=== PATIENT | female | born 1970 | race Two or more races ===

== ENCOUNTER 2016-12-22 13:08 | Emergency (ER) | payer OTHER, MEDICAID ==
--- NOTE | 2016-12-22 14:03 | ER Document Report ---
ED General - General Chief Complaint: Abnormal Lab Results Stated Complaint: ABNORMAL LABS RESULTS Time Seen by Provider: 12/22/16 13:55 Notes: 46-year-old female presents to the emergency department for right upper quadrant abdominal pain and abnormal lab results. Patient was sent over by Dr. Montelongo for lab results of: ACT-1400, ALT-1600, and ALK-203. Patient states her right upper quadrant pain radiates into her back. Patient had a negative ultrasound completed along with x-rays on Wednesday patient also states that she is smells a bad odor all the time. 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 Patient also takes 800 mg of ibuprofen 3 times a day. Patient also complains of some nausea, vomiting, and tiredness. Patient has not had a bowel movement in 4-5 days. Patient has had constipation in the past because of her morphine but has taken a laxative this morning with no relief. Patient also states her urine is very orange in color. Patient last ate about 1 hour prior to arrival. TRAVEL OUTSIDE OF THE [place] IN LAST 30 DAYS: No - Related Data Allergies/Adverse Reactions: doxycycline [Doxycycline] Allergy (Severe, Verified 12/22/16 13:56) Tachycardia latex [Latex] Allergy (Severe, Verified 12/22/16 13:56) rash Past Medical History - Social History Family History: Reviewed & Not Pertinent Patient has suicidal ideation: No Patient has homicidal ideation: No - Past Medical History Cardiac Medical History: Denies: Hx Coronary Artery Disease, Hx Heart Attack, Hx Hypertension Pulmonary Medical History: Denies: Hx Asthma, Hx Bronchitis, Hx COPD, Hx Pneumonia Neurological Medical History: Denies: Hx Cerebrovascular Accident, Hx Seizures Renal/ Medical History: Reports: Hx Ovarian Cysts. Denies: Hx Kidney Stones, Hx Peritoneal Dialysis GI Medical History: Reports: Hx Irritable Bowel - constipation Musculoskeltal Medical History: Denies Hx Arthritis Psychiatric Medical History: Denies: Hx Depression Past Surgical History: Reports: Hx Section - x4, Hx Hysterectomy - 06/06, Hx Orthopedic Surgery - bone fusions in both feet.; back surgeries - Immunizations Hx Diphtheria, Pertussis, Tetanus Vaccination: No Physical Exam - Vital signs Vitals: Temp Pulse Resp BP Pulse Ox 98.1 F 63 16 90/40 L 99 12/22/16 13:23 12/22/16 13:23 12/22/16 13:23 12/22/16 13:23 12/22/16 13:23 - Notes Notes: GENERAL: Alert, interacts well. No acute distress. LUNGS: Clear to auscultation bilaterally, no wheezes, rales, or rhonchi. No respiratory distress. HEART: Regular rate and rhythm. No murmurs, gallops, or rubs. ABDOMEN: Soft, lower abdominal tenderness with palpation. NEUROLOGICAL: Alert and oriented x3. Normal speech. Course - Vital Signs Vital signs: Temp Pulse Resp BP Pulse Ox 98.1 F 63 16 90/40 L 99 12/22/16 13:23 12/22/16 13:23 12/22/16 13:23 12/22/16 13:23 12/22/16 13:23 Scribe Documentation - Scribe Written by Scribe:: Orlando George, 12/22/2016 2:30 acting as scribe for :: Radha
--- NOTE | 2016-12-22 14:23 | ER Document Report ---
ED Medical Screen (RME) - General TRAVEL OUTSIDE OF THE [place] IN LAST 30 DAYS: No <DAYSI FARFAN - Last Filed: 12/22/16 14:25> <PREM ALEX - Last Filed: 12/22/16 16:49> - General Chief Complaint: Abnormal Lab Results Stated Complaint: ABNORMAL LABS RESULTS Time Seen by Provider: 12/22/16 13:55 Notes: 46-year-old female presents to the emergency department for right upper quadrant abdominal pain and abnormal lab results. Patient was sent over by Dr. Montelongo for lab results of: ACT-1400, ALT-1600, and ALK-203. Patient states her right upper quadrant pain radiates into her back. Patient had a negative ultrasound completed along with x-rays on Wednesday patient also states that she is smells a bad odor all the time. 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 Patient also takes 800 mg of ibuprofen 3 times a day. Patient also complains of some nausea, vomiting, and tiredness. Patient has not had a bowel movement in 4-5 days. Patient has had constipation in the past because of her morphine but has taken a laxative this morning with no relief. Patient also states her urine is very orange in color. Patient last ate about 1 hour prior to arrival. (DAYSI FARFAN) - Related Data Allergies/Adverse Reactions: doxycycline [Doxycycline] Allergy (Severe, Verified 12/22/16 13:56) Tachycardia latex [Latex] Allergy (Severe, Verified 12/22/16 13:56) rash Past Medical History - Past Medical History Cardiac Medical History: Denies: Hx Coronary Artery Disease, Hx Heart Attack, Hx Hypertension Pulmonary Medical History: Denies: Hx Asthma, Hx Bronchitis, Hx COPD, Hx Pneumonia Neurological Medical History: Denies: Hx Cerebrovascular Accident, Hx Seizures Renal/ Medical History: Reports: Hx Ovarian Cysts. Denies: Hx Kidney Stones, Hx Peritoneal Dialysis GI Medical History: Reports: Hx Irritable Bowel - constipation Musculoskeltal Medical History: Denies Hx Arthritis Psychiatric Medical History: Denies: Hx Depression Past Surgical History: Reports: Hx Section - x4, Hx Hysterectomy - 06/06, Hx Orthopedic Surgery - bone fusions in both feet.; back surgeries - Immunizations Hx Diphtheria, Pertussis, Tetanus Vaccination: No <DAYSI FARFAN - Last Filed: 12/22/16 14:25> Physical Exam <DAYSI FARFAN - Last Filed: 12/22/16 14:25> <PREM ALEX - Last Filed: 12/22/16 16:49> - Vital signs Vitals: Temp Pulse Resp BP Pulse Ox 98.1 F 63 16 90/40 L 99 12/22/16 13:23 12/22/16 13:23 12/22/16 13:23 12/22/16 13:23 12/22/16 13:23 - Notes Notes: VITAL: Blood pressure rechecked during exam: 111/65 GENERAL: Alert, interacts well. No acute distress. LUNGS: Clear to auscultation bilaterally, no wheezes, rales, or rhonchi. No respiratory distress. HEART: Regular rate and rhythm. No murmurs, gallops, or rubs. ABDOMEN: Soft, lower abdominal tenderness with palpation. NEUROLOGICAL: Alert and oriented x3. Normal speech. (DAYSI FARFAN) Course - Laboratory Result Diagrams: 12/22/16 15:45 12/22/16 15:45 <PREM ALEX - Last Filed: 12/22/16 16:49> - Vital Signs Vital signs: Temp Pulse Resp BP Pulse Ox 98.1 F 63 16 90/40 L 99 12/22/16 13:23 12/22/16 13:23 12/22/16 13:23 12/22/16 13:23 12/22/16 13:23 - Laboratory Laboratory results interpreted by me: 12/22/16 12/22/16 12/22/16 14:56 15:45 16:00 RDW 14.1 H Ammonia 8.8 L Urine Glucose (UA) >=500 H Urine Blood SMALL H Urine Urobilinogen 2.0 H Scribe Documentation - Scribe Written by Scribe:: Orlando George, 12/22/16 14:30 acting as scribe for :: Radha <DAYSI FARFAN - Last Filed: 12/22/16 14:25>
[2016-12-22 15:30] LABS: APPEARANCE,URINE SLIGHTLY-CLOUDY; BILIRUBIN,URINE NEGATIVE (NEGATIVE); GLUCOSE, URINE >=500 mg/dL (NEGATIVE); KETONES,URINE NEGATIVE (NEGATIVE); LEUKOCYTE ESTERASE,URINE NEGATIVE (NEGATIVE); NITRITE,URINE NEGATIVE (NEGATIVE); PROTEIN,URINE NEGATIVE (NEGATIVE); URINE SPECIFIC GRAVITY 1.022
[2016-12-22 15:40] LABS: URINE BARBITURATES SCREEN NEGATIVE; URINE METHADONE SCREEN NEGATIVE; URINE OPIATES LOW UNCONFIRMED POSITIVE; URINE PHENCYCLIDINE SCREEN NEGATIVE
[2016-12-22 16:00] LABS: ABSOLUTE BASOPHILS # (AUTO) 0.1 10^3/uL (0.0-0.2); ABSOLUTE EOSINOPHILS # (AUTO) 0.2 10^3/uL (0.0-0.6); ABSOLUTE LYMPHOCYTES (AUTO) 1.3 10^3/uL (0.5-4.7); ABSOLUTE MONOCYTES (AUTO) 0.5 10^3/uL (0.1-1.4); ABSOLUTE NEUT (AUTO) 2.7 10^3/uL (1.7-8.2); BASOPHILS % (AUTO) 1.2 % (0-2); EOSINOPHILS % (AUTO) 4.4 % (0-6); HEMATOCRIT 41.7 % (36.0-47.0); HEMOGLOBIN 13.9 g/dL (12.0-15.5); LYMPHOCYTES % (AUTO) 28.2 % (13-45); MEAN CORPUSCULAR HEMOGLOBIN 29.6 pg (27.0-33.4); MEAN CORPUSCULAR HGB CONC 33.4 g/dL (32.0-36.0); MEAN CORPUSCULAR VOLUME 89 fl (80-97); MONOCYTES % (AUTO) 10.1 % (3-13); RED CELL DISTRIBUTION WIDTH 14.1 % (11.5-14.0); SEGMENTED NEUTROPHILS % (AUTO) 56.1 % (42-78); WHITE BLOOD COUNT 4.8 10^3/uL (4.0-10.5)
[2016-12-22 16:32] LABS: ALBUMIN 3.6 g/dL (3.5-5.0); ALKALINE PHOSPHATASE 211 U/L (38-126); ANION GAP 8 (5-19); BILIRUBIN,TOTAL 2.8 mg/dL (0.2-1.3); BLOOD UREA NITROGEN 13 mg/dL (7-20); CARBON DIOXIDE 32 mmol/L (22-30); CHLORIDE 102 mmol/L (98-107); CREATININE RESULT 0.54 mg/dL (0.52-1.25); GLUCOSE 134 mg/dL (75-110); LIPASE 73.2 U/L (23-300); SODIUM 142.2 mmol/L (137-145)
[2016-12-22 16:58] LABS: ALANINE AMINOTRANSFERASE 1471 U/L (9-52); ASPARTATE AMINO TRANSFERASE 774 U/L (14-36)
--- NOTE | 2016-12-22 16:59 | RADIOLOGY REPORT (SQ) ---
EXAM DESCRIPTION: U/S ABDOMEN LIMITED W/O DOP COMPLETED DATE/TIME: 12/22/2016 4:47 pm REASON FOR STUDY: elevated LFTs COMPARISON: None. TECHNIQUE: Dynamic and static grayscale images acquired of the abdomen and recorded on PACS. Additio nal selected color Doppler and spectral images recorded. LIMITATIONS: None. FINDINGS: PANCREAS: No masses. Visualized pancreatic duct normal caliber. LIVER: No masses. Echotexture normal. LIVER VASCULATURE: Normal blood flow is identified in the portal vein. GALLBLADDER: No stones. Normal wall thickness. No pericholecystic fluid. ULTRASOUND-DETECTED RUBIO'S SIGN: Negative. INTRAHEPATIC DUCTS AND COMMON DUCT: CBD and intrahepatic ducts normal caliber. No filling defects. INFERIOR VENA CAVA: Normal flow. AORTA: No aneurysm. RIGHT KIDNEY: Normal size. Normal echogenicity. No solid or suspicious masses. No hydronephrosis. No calcifications. PERITONEAL AND RIGHT PLEURAL SPACE: No ascites or effusions. OTHER: No other significant findings. IMPRESSION: No significant intra-abdominal abnormalities were identified. Findings as noted above. TECHNICAL DOCUMENTATION: JOB ID: [id number]- All Rights Reserved
--- NOTE | 2016-12-22 17:38 | ER Document Report ---
ED GI/ - General Chief Complaint: Abnormal Lab Results Stated Complaint: ABNORMAL LABS RESULTS Time Seen by Provider: 12/22/16 13:55 Notes: Patient is a 46-year-old female who presents emergency department complaining of right upper quadrant pain 2 months with associated nausea for 1 week and decreased appetite. Patient states that she has been evaluated by her primary care physician Dr. Arvizu for this problem 2 times. Patient states that she has had an abdominal ultrasound which showed inflammation around her gallbladder but otherwise denies any other findings. States she was referred over to the emergency department today due to elevated liver enzymes on routine blood work that was drawn earlier this week. Otherwise she denies any heartburn, vomiting , diarrhea constipation. Patient states that she is from the [facility] so she was limited in her ability for access to healthcare going up. She did not receive her polio vaccine as a child. She did have polio as a child. Since she has moved to the [facility] she states that her vaccines are up-to-date Morphine 15 mg Motrin 800 Gabapentin 300mg PCP: laurence TRAVEL OUTSIDE OF THE [place] IN LAST 30 DAYS: No - Related Data Allergies/Adverse Reactions: doxycycline [Doxycycline] Allergy (Severe, Verified 12/22/16 13:56) Tachycardia latex [Latex] Allergy (Severe, Verified 12/22/16 13:56) rash Past Medical History - Social History Smoking Status: Never Smoker Family History: Reviewed & Not Pertinent Patient has suicidal ideation: No Patient has homicidal ideation: No - Past Medical History Cardiac Medical History: Denies: Hx Coronary Artery Disease, Hx Heart Attack, Hx Hypertension Pulmonary Medical History: Denies: Hx Asthma, Hx Bronchitis, Hx COPD, Hx Pneumonia Neurological Medical History: Denies: Hx Cerebrovascular Accident, Hx Seizures Renal/ Medical History: Reports: Hx Ovarian Cysts. Denies: Hx Kidney Stones, Hx Peritoneal Dialysis GI Medical History: Reports: Hx Irritable Bowel - constipation Musculoskeltal Medical History: Denies Hx Arthritis Psychiatric Medical History: Denies: Hx Depression Past Surgical History: Reports: Hx Section - x4, Hx Hysterectomy - 06/06, Hx Orthopedic Surgery - bone fusions in both feet.; back surgeries - Immunizations Hx Diphtheria, Pertussis, Tetanus Vaccination: No Physical Exam - Vital signs Vitals: Temp Pulse Resp BP Pulse Ox 98.1 F 63 16 90/40 L 99 12/22/16 13:23 12/22/16 13:23 12/22/16 13:23 12/22/16 13:23 12/22/16 13:23 - Notes Notes: PHYSICAL EXAM GENERAL: Alert, interacts well. HEAD: Normocephalic, atraumatic. EYES: Pupils equal, round, and reactive to light. Extraocular movements intact. ENT: Oral mucosa moist, tongue midline. NECK: Full range of motion. Supple. Trachea midline. LUNGS: Clear to auscultation bilaterally, no wheezes, rales, or rhonchi. No respiratory distress. HEART: Regular rate and rhythm. No murmurs, gallops, or rubs. ABDOMEN: Soft, nondistended, mild tenderness with mcburneys point assessment but no more then with general palpation of her abdomen. No guarding, rebound, or rigidity.. Bowel sounds present in all 4 quadrants. EXTREMITIES: Moves all 4 extremities spontaneously. No edema, radial and dorsalis pedis pulses 2/4 bilaterally. No cyanosis. NEUROLOGICAL: Alert and oriented x4. Normal speech. PSYCH: Normal affect, normal mood. SKIN: Warm, dry, normal turgor. No rashes or lesions noted. Course - Re-evaluation Re-evalutation: 12/22/16 18:31 38-year-old female who is hemodynamic stable, no acute distress and afebrile. Evidence of elevated AST, ALT and alk phos. Normal abdominal ultrasound. Will send hepatitis panel and patient can follow-up with gastroenterology. - Vital Signs Vital signs: Temp Pulse Resp BP Pulse Ox 98.1 F 61 17 103/66 97 12/22/16 13:23 12/22/16 18:19 12/22/16 18:19 12/22/16 18:19 12/22/16 18:19 - Laboratory Result Diagrams: 12/22/16 15:45 12/22/16 16:00 Laboratory results interpreted by me: 12/22/16 12/22/16 12/22/16 14:56 15:45 16:00 RDW 14.1 H Carbon Dioxide Glucose Total Bilirubin Direct Bilirubin AST ALT Alkaline Phosphatase Ammonia 8.8 L Urine Glucose (UA) >=500 H Urine Blood SMALL H Urine Urobilinogen 2.0 H Acetaminophen 12/22/16 16:00 RDW Carbon Dioxide 32 H Glucose 134 H Total Bilirubin 2.8 H Direct Bilirubin 2.0 H AST 774 H ALT 1471 H Alkaline Phosphatase 211 H Ammonia Urine Glucose (UA) Urine Blood Urine Urobilinogen Acetaminophen < 10 L - Diagnostic Test Radiology reviewed: Reports reviewed Discharge - Discharge Clinical Impression: Elevated liver function tests Condition: Good Disposition: HOME, SELF-CARE Instructions: Liver Function Abnormality ([facility]) Additional Instructions: Follow-up with your primary care physician for your results from today. Please follow-up with his compliance project manager regarding your visit today. Prescriptions: Ondansetron [Zofran Odt 4 mg Tablet] 1 - 2 tab PO Q4H PRN #15 tab.rapdis PRN Reason: For Nausea/Vomiting Referrals: ELVIS BRAY MD [Primary Care Provider] - Follow up as needed LORNA MCLEAN MD [ACTIVE STAFF] - Follow up in 1 week
[2016-12-22 18:22] VITALS: BP 103/66
== END 2016-12-22 18:19 | disposition home or self-care (01) ==
LOC: ER 13:08
DX: R74.8 Abnormal levels of other serum enzymes (principal); R74.0 Nonspecific elevation of levels of transaminase and lactic acid dehydrogenase [LDH]; R10.11 Right upper quadrant pain; R11.0 Nausea; R63.0 Anorexia; Z86.12 Personal history of poliomyelitis; Z88.0 Allergy status to penicillin; Z91.040 Latex allergy status; Z87.42 Personal history of other diseases of the female genital tract; Z87.19 Personal history of other diseases of the digestive system; Z90.710 Acquired absence of both cervix and uterus
CPT/HCPCS: 36415; 76705; 80053; 80074; 80307; 81001; 82140; 83690; 85025; 99284

== ENCOUNTER → 2017-06-15 | Outpatient (CLI) | payer OTHER, MEDICAID ==
--- NOTE | 2017-06-15 15:23 | WOMENS IMAGING REPORT ---
EXAM DESCRIPTION: BILAT SCREENING MAMMO W/CAD COMPLETED DATE/TIME: 06/15/2017 11:16 am REASON FOR STUDY: ROUTINE SCREENING; Z12.31 Z12.31 ENCNTR SCREEN MAMMOGRAM FOR MALIGNANT NEOPLASM O F SHIRIN COMPARISON: None. TECHNIQUE: Standard craniocaudal and mediolateral oblique views of each breast recorded using [employer] acquisition. LIMITATIONS: None. FINDINGS: No masses, calcifications or architectural distortion. No areas of suspicion. Read with the assistance of CAD. [facility] - R2 Cenova Version 1.3 .[facility] - R2 Cenova Version 1.3 .[facility] - R2 Cenova Version 2.4 .[facility] [place] R[place] Cenova Version 2.4 .[facility] - R2 Water Filterer Version 9.2 IMPRESSION: NORMAL MAMMOGRAM. BIRADS 1. BREAST DENSITY: b. There are scattered areas of fibroglandular density. BIRAD: 1 NEGATIVE RECOMMENDATION: ROUTINE SCREENING COMMENT: The patient has been notified of the results by letter per SA requirements. Additional no tification policies are in place for contacting patient with suspicious or incomplete findings. Quality ID #[id number]: The [employer] recommends an annual screening mammogram for women aged 40 years or over. This facility utilizes a reminder system to ensure that all patients receive reminder letters, and/or direct phone calls for appointments. This includes reminders for routine scr eening mammograms, diagnostic mammograms, or other Breast Imaging Interventions when appropriate. Th is patient will be placed in the appropriate reminder system. The [employer] (A[employer]) has developed recommendations for screening MRI of the breast s in certain patient populations, to be used in conjunction with mammography. Breast MRI surveillanc e may be appropriate for women with more than 20% lifetime risk of developing breast cancer as deter mined by genetic testing, significant family history of the disease, or history of mantle radiation f or Hodgkins Disease. ACR Practice Guidelines 2008. TECHNICAL DOCUMENTATION: FINDING NUMBER: (1) ASSESSMENT: (1) JOB ID: [id number] [employer]- All Rights Reserved
== END ==
LOC: WI 10:56
PROVIDERS: ATTEND Internal Medicine
DX: Z12.31 Encounter for screening mammogram for malignant neoplasm of breast (principal)
CPT/HCPCS: 77067; G0202

== ENCOUNTER 2017-07-03 13:21 | Emergency (ER) | payer OTHER, MEDICAID ==
[2017-07-03] MEDS ORDERED: ASPIRIN 325 MG TABLET PO ONE (13:57)
--- NOTE | 2017-07-03 14:00 | ER Document Report ---
ED Medical Screen (RME) - General Chief Complaint: Fall Injury Stated Complaint: FALL HEAD INJURY CHEST PAIN Time Seen by Provider: 07/03/17 13:57 Mode of Arrival: Wheelchair Information source: Patient TRAVEL OUTSIDE OF THE [place] 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 She denies neck pain. Soon after, she developed "tightness" in her chest. She has not taken ASA today - Related Data Allergies/Adverse Reactions: doxycycline [Doxycycline] Allergy (Severe, Verified 07/03/17 13:28) Tachycardia latex [Latex] Allergy (Severe, Verified 07/03/17 13:28) rash Past Medical History - Social History Chew tobacco use (# tins/day): No Frequency of alcohol use: None Drug Abuse: None - Past Medical History Cardiac Medical History: Denies: Hx Coronary Artery Disease, Hx Heart Attack, Hx Hypertension Pulmonary Medical History: Denies: Hx Asthma, Hx Bronchitis, Hx COPD, Hx Pneumonia Neurological Medical History: Denies: Hx Cerebrovascular Accident, Hx Seizures Renal/ Medical History: Reports: Hx Ovarian Cysts. Denies: Hx Kidney Stones, Hx Peritoneal Dialysis GI Medical History: Reports: Hx Irritable Bowel - constipation Musculoskeltal Medical History: Denies Hx Arthritis Psychiatric Medical History: Denies: Hx Depression Past Surgical History: Reports: Hx Section - x4, Hx Hysterectomy - 06/06, Hx Orthopedic Surgery - bone fusions in both feet.; back surgeries - Immunizations Hx Diphtheria, Pertussis, Tetanus Vaccination: No Physical Exam - Vital signs Vitals: Temp Pulse Resp BP Pulse Ox 100.2 F 98 18 156/97 H 100 07/03/17 13:29 07/03/17 13:29 07/03/17 13:29 07/03/17 13:29 07/03/17 13:29 Course - Vital Signs Vital signs: Temp Pulse Resp BP Pulse Ox 100.2 F 98 18 156/97 H 100 07/03/17 13:29 07/03/17 13:29 07/03/17 13:29 07/03/17 13:29 07/03/17 13:29
[2017-07-03 14:18] LABS: ABSOLUTE BASOPHILS # (AUTO) 0.1 10^3/uL (0.0-0.2); ABSOLUTE LYMPHOCYTES (AUTO) 2.3 10^3/uL (0.5-4.7); ABSOLUTE MONOCYTES (AUTO) 0.5 10^3/uL (0.1-1.4); ABSOLUTE NEUT (AUTO) 5.6 10^3/uL (1.7-8.2); BASOPHILS % (AUTO) 1.3 % (0-2); EOSINOPHILS % (AUTO) 0.2 % (0-6); HEMATOCRIT 41.5 % (36.0-47.0); HEMOGLOBIN 14.5 g/dL (12.0-15.5); MEAN CORPUSCULAR HEMOGLOBIN 29.9 pg (27.0-33.4); MEAN CORPUSCULAR VOLUME 85 fl (80-97); MONOCYTES % (AUTO) 6.1 % (3-13); RED BLOOD COUNT 4.86 10^6/uL (3.72-5.28); RED CELL DISTRIBUTION WIDTH 12.7 % (11.5-14.0); SEGMENTED NEUTROPHILS % (AUTO) 65.4 % (42-78); WHITE BLOOD COUNT 8.6 10^3/uL (4.0-10.5)
--- NOTE | 2017-07-03 14:29 | RADIOLOGY REPORT (SQ) ---
EXAM DESCRIPTION: CT HEAD WITHOUT COMPLETED DATE/TIME: 07/03/2017 2:20 pm REASON FOR STUDY: fall COMPARISON: None. TECHNIQUE: Axial images acquired through the brain without intravenous contrast. Images reviewed wi th bone, brain and subdural windows. Images stored on PACS. All CT scanners at this facility use dose modulation, iterative reconstruction, and/or weight based d osing when appropriate to reduce radiation dose to as low as reasonably achievable (ALARA). [facility]: Dose Right [facility]: CareDose [facility]: Dose Right [facility]: Teradose 4D [facility]: Smart Zizerones RADIATION DOSE: 64 mGy. LIMITATIONS: Motion artifact throughout the study FINDINGS: Motion artifact throughout the study. No gross acute large territory ischemic change. No gross intracranial hemorrhage, mass effect, or mi dline shift. There is midline frontal scalp swelling without underlying skull fracture. IMPRESSION: Motion artifact. Midline frontal scalp swelling without underlying skull fracture. No gross acute changes EVIDENCE OF ACUTE STROKE: NO. COMMENT: Quality ID # [id number]: Final reports with documentation of one or more dose reduction techniques (e.g., Automated exposure control, adjustment of the mA and/or kV according to patient size, use of iterative reconstruction technique) TECHNICAL DOCUMENTATION: JOB ID: [id number] [employer]- All Rights Reserved
--- NOTE | 2017-07-03 14:32 | RADIOLOGY REPORT (SQ) ---
EXAM DESCRIPTION: CHEST PA/LAT COMPLETED DATE/TIME: 07/03/2017 2:25 pm REASON FOR STUDY: fall COMPARISON: None. EXAM PARAMETERS: NUMBER OF VIEWS: two views TECHNIQUE: Digital Frontal and Lateral radiographic views of the chest acquired. RADIATION DOSE: NA LIMITATIONS: none FINDINGS: LUNGS AND PLEURA: No opacities, masses or pneumothorax. No pleural effusion. MEDIASTINUM AND HILAR STRUCTURES: No masses or contour abnormalities. HEART AND VASCULAR STRUCTURES: Heart normal size. No evidence for failure. BONES: Lower cervical fusion with hardware HARDWARE: None in the chest. OTHER: No other significant finding. IMPRESSION: NO SIGNIFICANT RADIOGRAPHIC FINDING IN THE CHEST. TECHNICAL DOCUMENTATION: JOB ID: [id number] [employer]- All Rights Reserved
[2017-07-03 14:39] LABS: ALANINE AMINOTRANSFERASE 25 U/L (9-52); ALBUMIN 4.1 g/dL (3.5-5.0); ALKALINE PHOSPHATASE 153 U/L (38-126); ANION GAP 14 (5-19); ASPARTATE AMINO TRANSFERASE 31 U/L (14-36); BILIRUBIN,DIRECT 0.6 mg/dL (0.0-0.4); BLOOD UREA NITROGEN 5 mg/dL (7-20); CALCIUM 9.8 mg/dL (8.4-10.2); CARBON DIOXIDE 26 mmol/L (22-30); CHLORIDE 107 mmol/L (98-107); CREATINE KINASE 114 U/L (30-135); CREATININE RESULT 0.46 mg/dL (0.52-1.25); GLUCOSE 132 mg/dL (75-110); POTASSIUM 3.3 mmol/L (3.6-5.0); SODIUM 147.3 mmol/L (137-145); TOTAL PROTEIN 8.5 g/dL (6.3-8.2)
[2017-07-03 14:51] LABS: CREATINE KINASE MB 1.03 ng/mL (<4.55)
[2017-07-03 14:54] LABS: TROPONIN I < 0.012 ng/mL
--- NOTE | 2017-07-03 15:09 | ER Document Report ---
ED Fall - General Chief Complaint: Fall Injury Stated Complaint: FALL HEAD INJURY CHEST PAIN Time Seen by Provider: 07/03/17 13:57 Mode of Arrival: Wheelchair Information source: Patient Notes: Patient has a history of polio leaving her with very weak legs that require her to wear leg braces in order to walk. She was going up a hill on gravel surface and slipped and fell forward hitting her face on the concrete surface. She sustained some abrasions to the forehead and upper lip region. She was able to stand back up with assistance and then was able to walk back to their vehicle without difficulty. Patient was never unconscious. Has not had any neurologic deficits. Patient denies any neck pain. Denies any chest pain or difficulty breathing. No abdominal pains. Did hit her right knee slightly, but has been able to bear weight on it. Patient has had neck surgery on 3 of the vertebrae there. Suffers from anxiety and often gets tremor or shakes. She takes hydroxyzine for this condition. TRAVEL OUTSIDE OF THE [place] IN LAST 30 DAYS: No - Related data Allergies/Adverse Reactions: doxycycline [Doxycycline] Allergy (Severe, Verified 07/03/17 13:28) Tachycardia latex [Latex] Allergy (Severe, Verified 07/03/17 13:28) rash Home Medications: Current Home Medications Ibuprofen [Motrin 800 mg Tablet] 800 mg PO Q8 PRN 07/03/17 [History] Morphine Sulfate [Morphine Sulfate] 1 tab PO QHS 07/03/17 [History] Tizanidine HCl [Tizanidine HCl] 1 tab PO TID PRN 07/03/17 [History] Past Medical History - General Information source: Patient - Social History Smoking Status: Never Smoker Chew tobacco use (# tins/day): No Frequency of alcohol use: None Drug Abuse: None Family History: Reviewed & Not Pertinent Patient has suicidal ideation: No Patient has homicidal ideation: No Renal/ Medical History: Reports: Hx Ovarian Cysts GI Medical History: Reports: Hx Irritable Bowel - constipation Past Surgical History: Reports: Hx Section - x4, Hx Hysterectomy - 06/06, Hx Orthopedic Surgery - bone fusions in both feet.; back surgeries - Immunizations Hx Diphtheria, Pertussis, Tetanus Vaccination: No Review of Systems - Review of Systems Notes: REVIEW OF SYSTEMS: CONSTITUTIONAL : Denies fever. CARDIOVASCULAR: Denies chest pain. RESPIRATORY: Denies cough, chest congestion, or shortness of breath. GASTROINTESTINAL: Denies abdominal pain or nausea, vomiting, or diarrhea. GENITOURINARY: Denies difficulty or painful urinating, urinary frequency, blood in urine. MUSCULOSKELETAL: Denies back or neck pain. Denies joint pain or swelling. SKIN: Denies rash or skin lesions. NEUROLOGICAL: Denies LOC or altered mental status. Denies headache. Denies sensory loss and no new motor deficits except those from polio that she has had since she was a child. ALL OTHER SYSTEMS REVIEWED AND NEGATIVE. Physical Exam - Vital signs Vitals: Temp Pulse Resp BP Pulse Ox 100.2 F 98 18 156/97 H 100 07/03/17 13:29 07/03/17 13:29 07/03/17 13:29 07/03/17 13:29 07/03/17 13:29 Interpretation: Normal, Febrile - Low-grade and not present on repeat - Notes Notes: PHYSICAL EXAMINATION: GENERAL: Well-appearing, in no acute distress. HEAD: Patient has some superficial abrasions in the right frontal forehead region. She also has a deeper abrasion in the midportion above the upper lip, just below the nose that is round and about 2 cm diameter. There are a few other scrapes or cuts and nothing requiring sutures. Teeth are stable. EYES: Pupils equal round and reactive to light, extraocular movements intact. ENT: oropharynx clear without exudates. Moist mucous membranes. NECK: Normal range of motion, supple. LUNGS: Breath sounds clear and equal bilaterally. Chest wall not tender. No abrasions. Breath sounds are normal. HEART: Regular rate and rhythm without murmurs. ABDOMEN: Soft, nontender. No guarding or rebound. BACK: No tenderness throughout entire back. EXTREMITIES: Normal range of motion without pain. Both lower extremities are very small stature, as is the patient overall. She has a very tiny abrasion of the lateral aspect of the right knee, but full passive range of motion of that knee without any significant pain. NEUROLOGICAL: Normal speech. Normal sensory, motor, and reflex exams, for her. Awake, alert, and oriented x3. Cranial nerves normal. PSYCH: Normal mood, normal affect. Slightly shaky, which are says is the way she is when she is anxious or nervous. SKIN: Warm, dry, no rashes. Course - Vital Signs Vital signs: Temp Pulse Resp BP Pulse Ox 98.6 F 89 18 170/86 H 99 07/03/17 15:12 07/03/17 15:12 07/03/17 13:29 07/03/17 15:12 07/03/17 15:12 - Laboratory Result Diagrams: 07/03/17 14:05 07/03/17 14:05 Laboratory results interpreted by me: 07/03/17 14:05 Sodium 147.3 H Potassium 3.3 L BUN 5 L Creatinine 0.46 L Glucose 132 H Direct Bilirubin 0.6 H Alkaline Phosphatase 153 H Total Protein 8.5 H Discharge - Discharge Clinical Impression: Fall, Facial abrasion, Contusion of chest Condition: Stable Disposition: HOME, SELF-CARE Additional Instructions: HEAD INJURY PRECAUTIONS: At this point, there is no evidence that your head injury is serious. Observation is necessary, however. Take only clear liquids for the first few hours, unless told otherwise by the doctor. If no pain medication was prescribed, you may take acetaminophen according to the directions on the bottle. Do not take any medication that may alter your level of alertness (unless you've discussed it with the doctor first) . Limit activity for the first 24 hours. Bed rest is best. During the first 24 hours, check to see approximately every two to three hours that the patient is easily arousable, responds normally, and can perform common tasks such as walking without difficulty. Contact your doctor or go to the hospital if any of the following things occur: Persistent vomiting, difficulty in arousing the patient, worsening or continued headache, or failure to improve as expected. Head injuries can cause symptoms that persist for a few days or even a few weeks. MUSCLE STRAIN: You have strained a muscle -- torn the fibers within the muscle. This often occurs with strenuous exertion, or during an injury that suddenly stretches the muscle. The seriousness of a strain varies. Some strains heal within days, others cause problems for months. X-rays cannot show a muscle strain. X-rays are taken only if symptoms suggest that a fracture could be present. The usual treatment of a muscle strain is rest and ice packs. Sometimes, a sling, splint, or crutches may be necessary to rest the muscle. The muscle can be used again once pain subsides. Severe strains require a special exercise and stretching program to prevent permanent stiffness and disability. Your doctor will advise you if this will be necessary. Call the doctor immediately if pain or swelling becomes severe, or if numbness or discoloration develop. CONTUSION: Your injury has resulted in a contusion -- a crushing of the deep tissues. No injury to important structures was detected during the physician's exam. Contusions vary in the amount of pain they cause, and in the length of time required for healing. Typically, the area will become bruised, and will remain painful to touch for two or three weeks. However, most patients are back to working and playing within a few days. After the initial period of rest and cold-packs, your symptoms (together with the doctor's recommendations) will determine how rapidly you can get back to full activity. Usually this means "do what feels okay, but don't do things that hurt." If re-examination was recommended, it's important to follow up as instructed. Call the doctor or return any time if pain increases, if swelling becomes severe, if you develop numbness or weakness in an injured extremity, or if any other alarming symptoms occur. ABRASIONS: An abrasion is a scraping injury of the skin. Some scarring may result. The seriousness of an abrasion is not always obvious at first. Hidden tissue damage may be present and infection may occur despite proper care. Complete healing may take from ten days to as long as a month. The healing time depends on the depth of the abrasion, and on the amount of crushing of underlying tissues from the injury. Keep the wound and dressing clean. Do not shower or bathe the area until okayed by the doctor. If the dressing gets wet, remove it and blot the wound dry, then reapply a clean dressing. Dressings should be changed every day. Sunscreen should be used for six months after the skin is healed. If any signs of infection occur (swelling, redness, increasing tenderness, red streaks, profuse purulent drainage from the abrasion, tender lumps in the armpit or groin above the abrasion, or fever), see the doctor immediately. ICE PACKS: Apply ice packs frequently against the painful area. Many different schedules are recommended, such as "20 minutes on, 20 minutes off" or "one hour ice, two hours rest." If you need to work, you may need to go longer between ice treatments. You should plan to have the area ice packed AT LEAST one fourth of the time. The ice should be applied over the wrap, tape, or splint, or over a layer of cloth -- not directly against the skin. Some ice bags have a built-in cloth and can be put directly on the skin. WARM PACKS: After approximately two days, apply gentle heat (such as a heating pad or hot water bottle) for about 20 to 30 minutes about every two hours -- at least four times daily. Warmth and elevation will help you make a more rapid recovery , and will ease the pain considerably. Do not use HOT heat, and never apply heat for longer than 30 minutes. The continuous heat can invisibly damage skin and muscles -- even when no burn is seen on the surface. Damaged muscles can make you MORE sore. Take your own morphine that you have at home for pain. FOLLOW-UP CARE: If you have been referred to a physician for follow-up care, call the physician s office for an appointment as you were instructed or within the next two days. If you experience worsening or a significant change in your symptoms, notify the physician immediately or return to the Emergency Department at any time for re-evaluation.
[2017-07-03 15:15] VITALS: BP 170/86
--- NOTE | 2017-07-04 09:20 | EKG REPORT ---
SEVERITY:- BORDERLINE ECG - SINUS RHYTHM LVH BY VOLTAGE BORDERLINE PROLONGED QT INTERVAL : Confirmed by: Himanshu Curry MD 04-Jul-2017 09:19:34
== END 2017-07-03 16:45 | disposition home or self-care (01) ==
LOC: ER 13:21
DX: S20.219A Contusion of unspecified front wall of thorax, initial encounter (principal); S00.81XA Abrasion of other part of head, initial encounter; S00.511A Abrasion of lip, initial encounter; S80.211A Abrasion, right knee, initial encounter; W01.0XXA Fall on same level from slipping, tripping and stumbling without subsequent striking against object, initial encounter; F41.9 Anxiety disorder, unspecified; R53.1 Weakness; Z86.12 Personal history of poliomyelitis; Z79.899 Other long term (current) drug therapy; Z88.1 Allergy status to other antibiotic agents; Z91.040 Latex allergy status
CPT/HCPCS: 36415; 70450; 71020; 80053; 82550; 82553; 84484; 85025; 93005; 93010; 99284

== ENCOUNTER → 2017-09-08 | Outpatient (CLI) | payer OTHER, MEDICAID ==
[2017-09-08 12:09] LABS: ABSOLUTE BASOPHILS # (AUTO) 0.1 10^3/uL (0.0-0.2); ABSOLUTE EOSINOPHILS # (AUTO) 0.1 10^3/uL (0.0-0.6); ABSOLUTE LYMPHOCYTES (AUTO) 2.1 10^3/uL (0.5-4.7); ABSOLUTE MONOCYTES (AUTO) 0.3 10^3/uL (0.1-1.4); ABSOLUTE NEUT (AUTO) 3.7 10^3/uL (1.7-8.2); BASOPHILS % (AUTO) 1.4 % (0-2); EOSINOPHILS % (AUTO) 1.6 % (0-6); HEMATOCRIT 39.2 % (36.0-47.0); HEMOGLOBIN 13.7 g/dL (12.0-15.5); LYMPHOCYTES % (AUTO) 33.8 % (13-45); MEAN CORPUSCULAR HEMOGLOBIN 29.9 pg (27.0-33.4); MEAN CORPUSCULAR VOLUME 85 fl (80-97); MONOCYTES % (AUTO) 5.2 % (3-13); PLATELET COUNT 242 10^3/uL (150-450); RED BLOOD COUNT 4.59 10^6/uL (3.72-5.28); RED CELL DISTRIBUTION WIDTH 12.9 % (11.5-14.0); TOTAL CELLS COUNTED % (AUTO) 100 %; WHITE BLOOD COUNT 6.3 10^3/uL (4.0-10.5)
[2017-09-08 12:37] LABS: ALANINE AMINOTRANSFERASE 29 U/L (9-52); ALBUMIN 4.4 g/dL (3.5-5.0); ALKALINE PHOSPHATASE 106 U/L (38-126); ANION GAP 10 (5-19); ASPARTATE AMINO TRANSFERASE 36 U/L (14-36); BILIRUBIN,DIRECT 0.5 mg/dL (0.0-0.4); BILIRUBIN,TOTAL 0.9 mg/dL (0.2-1.3); BLOOD UREA NITROGEN 11 mg/dL (7-20); CALCIUM 10.2 mg/dL (8.4-10.2); CARBON DIOXIDE 23 mmol/L (22-30); CHLORIDE 107 mmol/L (98-107); GLUCOSE 109 mg/dL (75-110); POTASSIUM 3.9 mmol/L (3.6-5.0); SODIUM 139.9 mmol/L (137-145); TOTAL PROTEIN 7.7 g/dL (6.3-8.2)
== END ==
LOC: OD 11:13
PROVIDERS: ATTEND Family Medicine
DX: I10 Essential (primary) hypertension (principal); R53.83 Other fatigue
CPT/HCPCS: 36415; 80053; 84443; 85025

== ENCOUNTER 2017-09-14 19:06 | Emergency (ER) | payer OTHER, MEDICAID ==
[2017-09-14 19:34] LABS: ABSOLUTE BASOPHILS # (AUTO) 0.1 10^3/uL (0.0-0.2); ABSOLUTE EOSINOPHILS # (AUTO) 0.2 10^3/uL (0.0-0.6); ABSOLUTE LYMPHOCYTES (AUTO) 2.7 10^3/uL (0.5-4.7); ABSOLUTE MONOCYTES (AUTO) 0.6 10^3/uL (0.1-1.4); ABSOLUTE NEUT (AUTO) 6.7 10^3/uL (1.7-8.2); BASOPHILS % (AUTO) 1.2 % (0-2); EOSINOPHILS % (AUTO) 2.3 % (0-6); HEMATOCRIT 42.1 % (36.0-47.0); HEMOGLOBIN 14.4 g/dL (12.0-15.5); LYMPHOCYTES % (AUTO) 26.3 % (13-45); MEAN CORPUSCULAR HGB CONC 34.1 g/dL (32.0-36.0); MEAN CORPUSCULAR VOLUME 88 fl (80-97); MONOCYTES % (AUTO) 5.8 % (3-13); PLATELET COUNT 302 10^3/uL (150-450); RED BLOOD COUNT 4.78 10^6/uL (3.72-5.28); RED CELL DISTRIBUTION WIDTH 12.8 % (11.5-14.0); SEGMENTED NEUTROPHILS % (AUTO) 64.4 % (42-78); TOTAL CELLS COUNTED % (AUTO) 100 %; WHITE BLOOD COUNT 10.4 10^3/uL (4.0-10.5)
[2017-09-14 19:47] LABS: ALANINE AMINOTRANSFERASE 28 U/L (9-52); ALBUMIN 4.6 g/dL (3.5-5.0); ALKALINE PHOSPHATASE 82 U/L (38-126); ANION GAP 11 (5-19); ASPARTATE AMINO TRANSFERASE 26 U/L (14-36); BILIRUBIN,DIRECT 0.2 mg/dL (0.0-0.4); BILIRUBIN,TOTAL 1.2 mg/dL (0.2-1.3); BLOOD UREA NITROGEN 36 mg/dL (7-20); CALCIUM 10.1 mg/dL (8.4-10.2); CARBON DIOXIDE 30 mmol/L (22-30); CHLORIDE 96 mmol/L (98-107); GLUCOSE 196 mg/dL (75-110); POTASSIUM 3.6 mmol/L (3.6-5.0); SODIUM 137.3 mmol/L (137-145); TOTAL PROTEIN 7.4 g/dL (6.3-8.2)
[2017-09-14] MEDS: NORMAL SALINE 1000 ML 1,000 ML IV PRN ×4 (19:48→22:06)
--- NOTE | 2017-09-14 21:16 | ER Document Report ---
ED General - General Chief Complaint: Low Blood Pressure Stated Complaint: LOW BLOOD PRESSURE Time Seen by Provider: 09/14/17 19:22 Mode of Arrival: Wheelchair Information source: Patient, Relative Notes: 47-year-old female history of hypertension who was recently placed on lisinopril hydrochlorothiazide presents with complaints of weakness lightheadedness low blood pressure. It is noted that the patient's blood pressure has been as low 60s over 40s at home after taking the blood pressure medication. They note they have been on this medication for the past week. Patient feels dizzy and lightheaded when she stands TRAVEL OUTSIDE OF THE [place] IN LAST 30 DAYS: No - HPI Onset: Last week Onset/Duration: Intermittent Quality of pain: No pain Severity: Moderate Pain Level: Denies Associated symptoms: Nausea, Vomiting, Sweating, Weakness Exacerbated by: Standing Relieved by: Denies Similar symptoms previously: Yes Recently seen / treated by doctor: Yes - Related Data Allergies/Adverse Reactions: doxycycline [Doxycycline] Allergy (Severe, Verified 09/14/17 19:41) Tachycardia latex [Latex] Allergy (Severe, Verified 09/14/17 19:41) rash Past Medical History - Social History Smoking Status: Never Smoker Cigarette use (# per day): No Chew tobacco use (# tins/day): No Smoking Education Provided: No Frequency of alcohol use: None Drug Abuse: None Family History: Reviewed & Not Pertinent Patient has suicidal ideation: No Patient has homicidal ideation: No - Past Medical History Cardiac Medical History: Reports: Hx Hypertension Denies: Hx Coronary Artery Disease, Hx Heart Attack Pulmonary Medical History: Denies: Hx Asthma, Hx Bronchitis, Hx COPD, Hx Pneumonia Neurological Medical History: Denies: Hx Cerebrovascular Accident, Hx Seizures Renal/ Medical History: Reports: Hx Ovarian Cysts. Denies: Hx Kidney Stones, Hx Peritoneal Dialysis GI Medical History: Reports: Hx Irritable Bowel - constipation Musculoskeltal Medical History: Denies Hx Arthritis Psychiatric Medical History: Reports: Hx Depression - Anxiety Past Surgical History: Reports: Hx Section - x4, Hx Hysterectomy, Hx Orthopedic Surgery - bone fusions in both feet.; back surgeries - Immunizations Hx Diphtheria, Pertussis, Tetanus Vaccination: No Review of Systems - Review of Systems Notes: REVIEW OF SYSTEMS: CONSTITUTIONAL : Denies fever, chills, or sweats. Denies recent illness. EENT: Denies eye, ear, throat, or mouth pain or symptoms. Denies nasal or sinus congestion or discharge. Denies throat, tongue, or mouth swelling or difficulty swallowing. CARDIOVASCULAR: Denies chest pain. Denies palpitations or racing or irregular heart beat. Denies ankle edema. RESPIRATORY: Denies cough, cold, or chest congestion. Denies shortness of breath, difficulty breathing, or wheezing. GASTROINTESTINAL: Denies abdominal pain or distention. Denies nausea, vomiting , or diarrhea. Denies blood in vomitus, stools, or per rectum. Denies black, tarry stools. Denies constipation. GENITOURINARY: Denies difficulty urinating, painful urination, burning, frequency, blood in urine, or discharge. FEMALE GENITOURINARY: Denies vaginal bleeding, heavy or abnormal periods, irregular periods. Denies vaginal discharge or odor. MUSCULOSKELETAL: Denies back or neck pain or stiffness. Denies joint pain or swelling. SKIN: Denies rash, lesions or sores. HEMATOLOGIC : Denies easy bruising or bleeding. LYMPHATIC: Denies swollen, enlarged glands. NEUROLOGICAL: Admits to weakness headedness PSYCHIATRIC: Denies anxiety or stress. Denies depression, suicidal ideation, or homicidal ideation. ALL OTHER SYSTEMS REVIEWED AND NEGATIVE. PHYSICAL EXAMINATION: GENERAL: Initially ill-appearing female significantly hypotensive HEAD: Atraumatic, normocephalic. EYES: Pupils equal round and reactive to light, extraocular movements intact, conjunctiva are normal. ENT: Nares patent, oropharynx clear without exudates. Moist mucous membranes. NECK: Normal range of motion, supple without lymphadenopathy LUNGS: Breath sounds clear to auscultation bilaterally and equal. No wheezes rales or rhonchi. HEART: Regular rate and rhythm without murmurs ABDOMEN: Soft, nontender, nondistended abdomen. No guarding, no rebound. No masses appreciated. Female : deferred Musculoskeletal: Normal range of motion, no pitting or edema. No cyanosis. NEUROLOGICAL: Cranial nerves grossly intact. Normal speech, normal gait. Normal sensory, motor exams PSYCH: Anxious has not taken anxiety medication SKIN: Warm, Dry, normal turgor, no rashes or lesions noted. Dictation was performed using [employer] voice recognition software Physical Exam - Vital signs Vitals: Resp BP Pulse Ox 17 68/45 L 98 09/14/17 19:20 09/14/17 19:20 09/14/17 19:20 Course - Re-evaluation Re-evalutation: 09/15/17 00:03 Upon arrival patient is noted to be severely hypotensive, immediately 2 L of IV fluids were given which improved the blood pressure. Patient was then evaluated for a longer period of time noted to be slightly hypotensive again and given a second 2 L bolus. After the 4 bags of fluids patient's blood pressure has been stable she feels much better, anxiety medication was given as well. There is mild renal insufficiency noted which I believe associated with the hydrochlorothiazide and lisinopril that she is taking has caused these severe drops. I will write for prescription of just lisinopril since the patient's blood pressure is noted to be elevated at times when she is not on the medication. Otherwise patient is been instructed to follow-up with primary care physician for further evaluation care After performing a Medical Screening Examination, I estimate there is LOW risk for INTRACRANIAL HEMORRHAGE, ISCHEMIC CVA, MALIGNANT DYSRHYTHMIA, ACUTE CORONARY SYNDROME, MENINGITIS, PULMONARY EMBOLISM, or SEPSIS thus I consider the discharge disposition reasonable. I have reevaluated this patient multiple times and no significant life threatening changes are noted. The patient and I have discussed the diagnosis and risks, and we agree with discharging home with close follow-up with the understanding that symptoms and presentations can change. We also discussed returning to the Emergency Department immediately if new or worsening symptoms occur. We have discussed the symptoms which are most concerning (e.g., changing or worsening pain, weakness, vomiting, fever) that necessitate immediate return. - Vital Signs Vital signs: Temp Pulse Resp BP Pulse Ox 98.6 F 16 115/65 100 09/14/17 22:10 09/14/17 22:01 09/14/17 22:01 09/14/17 22:01 - Laboratory Result Diagrams: 09/14/17 19:21 09/14/17 19:21 Laboratory results interpreted by me: 09/14/17 19:21 Chloride 96 L BUN 36 H Creatinine 1.41 H Est GFR ( Amer) 48 L Est GFR (Non-Af Amer) 40 L Glucose 196 H Critical Care Note - Critical Care Note Total time excluding time spent on procedures (mins): 33 Comments: 33 minutes of critical care time spent in direct contact evaluating and reevaluating the patient, treating symptoms, reviewing labs and studies and speaking with family and consultants excluding any procedures Discharge - Discharge Clinical Impression: Anxiety Hypotension Qualifiers: Hypotension type: hypotension due to drug Qualified Code(s): I95.2 - Hypotension due to drugs Condition: Stable Disposition: HOME, SELF-CARE Instructions: Hypotension ([facility]) Prescriptions: Lisinopril 10 mg PO DAILY #14 tablet Referrals: BRANDAN BRAY MD [Primary Care Provider] - Follow up as needed
[2017-09-14] MEDS ORDERED: LORAZEPAM INJ 2 MG/1 ML VIAL IV ONE (21:40)
[2017-09-14 21:44] LABS: CREATINE KINASE MB 1.18 ng/mL (<4.55)
--- NOTE | 2017-09-14 21:45 | RADIOLOGY REPORT (SQ) ---
EXAM DESCRIPTION: CHEST SINGLE VIEW COMPLETED DATE/TIME: 09/14/2017 9:37 pm REASON FOR STUDY: hypotension COMPARISON: None. EXAM PARAMETERS: NUMBER OF VIEWS: One view. TECHNIQUE: Single frontal radiographic view of the chest acquired. RADIATION DOSE: NA LIMITATIONS: None. FINDINGS: LUNGS AND PLEURA: No opacities, masses or pneumothorax. No pleural effusion. MEDIASTINUM AND HILAR STRUCTURES: No masses. Contour normal. HEART AND VASCULAR STRUCTURES: Heart normal in size. Normal vasculature. BONES: No acute findings. HARDWARE: None in the chest. OTHER: No other significant finding. IMPRESSION: NO ACUTE RADIOGRAPHIC FINDING IN THE CHEST. TECHNICAL DOCUMENTATION: JOB ID: [id number] [employer]- All Rights Reserved
[2017-09-14 21:47] LABS: TROPONIN I < 0.012 ng/mL
[2017-09-14 22:03] VITALS: BP 115/65
--- NOTE | 2017-09-15 09:30 | EKG REPORT ---
SEVERITY:- BORDERLINE ECG - SINUS RHYTHM LVH BY VOLTAGE : Confirmed by: Kaela Booth 15-Sep-2017 09:30:05
== END 2017-09-14 22:15 | disposition home or self-care (01) ==
LOC: ER 19:06
DX: I95.2 Hypotension due to drugs (principal); T50.905A Adverse effect of unspecified drugs, medicaments and biological substances, initial encounter; F41.9 Anxiety disorder, unspecified; R53.1 Weakness; R42 Dizziness and giddiness; I10 Essential (primary) hypertension; N28.9 Disorder of kidney and ureter, unspecified; R11.2 Nausea with vomiting, unspecified; R61 Generalized hyperhidrosis; Z88.1 Allergy status to other antibiotic agents; Z91.040 Latex allergy status
CPT/HCPCS: 93005; 99291; 96361; 96374; 36415; 82553; 82550; 85025; 80053; 84484; 71045; 93010; J2060; J7030

== ENCOUNTER → 2017-10-12 | Outpatient (CLI) | payer OTHER, MEDICAID ==
[2017-10-12 13:13] LABS: ABSOLUTE BASOPHILS # (AUTO) 0.1 10^3/uL (0.0-0.2); ABSOLUTE EOSINOPHILS # (AUTO) 0.1 10^3/uL (0.0-0.6); ABSOLUTE LYMPHOCYTES (AUTO) 1.7 10^3/uL (0.5-4.7); ABSOLUTE MONOCYTES (AUTO) 0.3 10^3/uL (0.1-1.4); ABSOLUTE NEUT (AUTO) 3.2 10^3/uL (1.7-8.2); BASOPHILS % (AUTO) 1.2 % (0-2); EOSINOPHILS % (AUTO) 2.1 % (0-6); HEMATOCRIT 38.8 % (36.0-47.0); HEMOGLOBIN 13.1 g/dL (12.0-15.5); LYMPHOCYTES % (AUTO) 31.7 % (13-45); MEAN CORPUSCULAR HEMOGLOBIN 29.6 pg (27.0-33.4); MEAN CORPUSCULAR HGB CONC 33.8 g/dL (32.0-36.0); MEAN CORPUSCULAR VOLUME 88 fl (80-97); MONOCYTES % (AUTO) 4.8 % (3-13); PLATELET COUNT 206 10^3/uL (150-450); RED BLOOD COUNT 4.43 10^6/uL (3.72-5.28); RED CELL DISTRIBUTION WIDTH 13.1 % (11.5-14.0); SEGMENTED NEUTROPHILS % (AUTO) 60.2 % (42-78); TOTAL CELLS COUNTED % (AUTO) 100 %; WHITE BLOOD COUNT 5.3 10^3/uL (4.0-10.5)
[2017-10-12 13:30] LABS: AMORPHOUS SEDIMENT,URINE TRACE /HPF; APPEARANCE,URINE SLIGHTLY-CLOUDY; BILIRUBIN,URINE NEGATIVE (NEGATIVE); COLOR,URINE YELLOW; GLUCOSE, URINE 50 mg/dL (NEGATIVE); KETONES,URINE NEGATIVE (NEGATIVE); LEUKOCYTE ESTERASE,URINE TRACE (NEGATIVE); NITRITE,URINE POSITIVE (NEGATIVE); PROTEIN,URINE NEGATIVE (NEGATIVE); URINE SPECIFIC GRAVITY 1.015; UROBILINOGEN,URINE NEGATIVE mg/dL (<2.0)
[2017-10-12 13:41] LABS: ALANINE AMINOTRANSFERASE 26 U/L (9-52); ALBUMIN 4.1 g/dL (3.5-5.0); ALKALINE PHOSPHATASE 94 U/L (38-126); ANION GAP 8 (5-19); ASPARTATE AMINO TRANSFERASE 21 U/L (14-36); BILIRUBIN,DIRECT 0.4 mg/dL (0.0-0.4); BILIRUBIN,TOTAL 0.8 mg/dL (0.2-1.3); BLOOD UREA NITROGEN 11 mg/dL (7-20); CALCIUM 9.5 mg/dL (8.4-10.2); CARBON DIOXIDE 26 mmol/L (22-30); CHLORIDE 108 mmol/L (98-107); GLUCOSE 110 mg/dL (75-110); POTASSIUM 3.7 mmol/L (3.6-5.0); SODIUM 141.6 mmol/L (137-145); TOTAL PROTEIN 7.3 g/dL (6.3-8.2)
[2017-10-15 08:44] LABS: RENIN ACTIVITY 0.657 ng/mL/hr (0.167-5.380)
[2017-10-15 08:56] LABS: ALDOSTERONE 5.9 ng/dL (0.0-30.0)
== END ==
LOC: OD 11:48
PROVIDERS: ATTEND Internal Medicine Nephrology
DX: N39.0 Urinary tract infection, site not specified (principal); I10 Essential (primary) hypertension
CPT/HCPCS: 36415; 80053; 81001; 82088; 83835; 84244; 84443; 85025; 87086; 87088; 87186

== ENCOUNTER → 2017-11-15 | Outpatient (CLI) | payer OTHER, MEDICAID ==
--- NOTE | 2017-11-15 14:17 | RADIOLOGY REPORT (SQ) ---
EXAM DESCRIPTION: CT ABDOMEN COMBO COMPLETED DATE/TIME: 11/15/2017 9:52 am REASON FOR STUDY: BENIGN NEOPLASM OF UNSPECIFIED ADRENAL GLAND (D35.00), HTN (I10) D35.00 BENIGN NE OPLASM OF UNSPECIFIED ADRENAL GLAND I10 ESSENTIAL (PRIMARY) HYPERTENSION COMPARISON: 12/05/2015. TECHNIQUE: CT scan of the abdomen performed with and without intravenous contrast, and without oral contrast. Multiphase imaging in arterial, venous, and delayed phases. Contrasted imaging performed using helical scanning technique with dynamic intravenous contrast injection. Images reviewed with nadeen ng, soft tissue, and bone windows. Reconstructed coronal and sagittal MPR images reviewed. Delayed im ages for evaluation of the urinary system also acquired and evaluated. All images stored on PACS. All CT scanners at this facility use dose modulation, iterative reconstruction, and/or weight based d osing when appropriate to reduce radiation dose to as low as reasonably achievable (ALARA). [facility]: Dose Right [facility]: CareDose [facility]: Dose Right [facility]: Teradose 4D [facility]: FrameBlast CONTRAST TYPE AND DOSE: contrast/concentration: Isovue 370.00 mg/ml; Total Contrast Delivered: 44.0 ml; Total Saline Delivered: 74.0 ml RENAL FUNCTION: BUN 11 creatinine 0.5. RADIATION DOSE: CT Rad equipment meets quality standard of care and radiation dose reduction techniq ues were employed. CTDIvol: 6.8 - 11.3 mGy. DLP: 921 mGy-cm.. LIMITATIONS: None. FINDINGS: NONCONTRASTED IMAGING: No significant renal or bladder calcifications. No other significan t organ calcifications. POSTCONTRASTED IMAGING: LOWER CHEST: No significant findings. No nodules or infiltrates. LIVER: Normal size. Stable cyst in the left lobe. No solid masses. No dilated ducts. SPLEEN: Normal size. No focal lesions. PANCREAS: No masses. No significant calcifications. No adjacent inflammation or peripancreatic fluid collections. Pancreatic duct not dilated. GALLBLADDER: No identified stones by CT criteria. No inflammatory changes to suggest cholecystitis. ADRENAL GLANDS: No significant masses or asymmetry. RIGHT KIDNEY AND URETER: No solid masses. No significant calcifications. No hydronephrosis or hyd roureter. LEFT KIDNEY AND URETER: No solid masses. No significant calcifications. No hydronephrosis or hydr oureter. AORTA AND VESSELS: No aneurysm. No dissection. Renal arteries, SMA, celiac without stenosis. RETROPERITONEUM: No retroperitoneal adenopathy, hemorrhage or masses. BOWEL AND PERITONEAL CAVITY: No masses or inflammatory changes. No free fluid or peritoneal masses. APPENDIX: Not visualized. ABDOMINAL WALL: No masses. No hernias. BONES: No significant or acute findings. OTHER: No other significant finding. IMPRESSION: STABLE CYST IN THE LEFT LOBE OF THE LIVER. NO ADRENAL MASS. NO RETROPERITONEAL MASSES OR ADENOPATHY. NO OTHER SIGNIFICANT OR ACUTE ABNORMALITY IN THE ABDOMEN. TECHNICAL DOCUMENTATION: JOB ID: [id number] Quality ID # [id number]: Final reports with documentation of one or more dose reduction techniques (e.g., Au tomated exposure control, adjustment of the mA and/or kV according to patient size, use of iterative reconstruction technique) 2010 [employer]- All Rights Reserved Reading location - IP/workstation name: [email or web address]
== END ==
LOC: RAD 08:53
PROVIDERS: ATTEND Internal Medicine Nephrology
DX: D35.00 Benign neoplasm of unspecified adrenal gland (principal); I10 Essential (primary) hypertension; K76.89 Other specified diseases of liver
CPT/HCPCS: 74170; 82565

== ENCOUNTER → 2017-12-07 | Outpatient (CLI) | payer OTHER, MEDICAID ==
--- NOTE | 2017-12-07 12:36 | EKG REPORT ---
SEVERITY:- NORMAL ECG - SINUS RHYTHM : Confirmed by: Himanshu Curry MD 07-Dec-2017 12:34:41
[2017-12-07 12:43] LABS: APPEARANCE,URINE SLIGHTLY-CLOUDY; BILIRUBIN,URINE NEGATIVE (NEGATIVE); COLOR,URINE YELLOW; GLUCOSE, URINE NEGATIVE (NEGATIVE); KETONES,URINE NEGATIVE (NEGATIVE); LEUKOCYTE ESTERASE,URINE NEGATIVE (NEGATIVE); NITRITE,URINE NEGATIVE (NEGATIVE); PROTEIN,URINE NEGATIVE (NEGATIVE); URIC ACID CRYSTALS,URINE FEW /HPF; UROBILINOGEN,URINE NEGATIVE mg/dL (<2.0)
== END ==
LOC: OD 11:21
PROVIDERS: ATTEND Internal Medicine Nephrology
DX: I12.9 Hypertensive chronic kidney disease with stage 1 through stage 4 chronic kidney disease, or unspecified chronic kidney disease (principal); N18.2 Chronic kidney disease, stage 2 (mild); H35.033 Hypertensive retinopathy, bilateral; N39.0 Urinary tract infection, site not specified
CPT/HCPCS: 81001; 87086; 87088; 87186; 93005; 93010

== ENCOUNTER → 2018-01-19 | Outpatient (CLI) | payer OTHER, MEDICAID | LOC: OD 08:39 | PROVIDERS: ATTEND Internal Medicine Endocrinology, Diabetes & Metabolism | DX: E27.0 Other adrenocortical overactivity (principal) | CPT/HCPCS: 36415; 82024; 82533 ==

== ENCOUNTER → 2018-02-03 | Outpatient (CLI) | payer OTHER, MEDICAID ==
[2018-02-03 16:42] LABS: HEMATOCRIT 35.6 % (36.0-47.0); HEMOGLOBIN 12.2 g/dL (12.0-15.5); MEAN CORPUSCULAR HEMOGLOBIN 30.1 pg (27.0-33.4); MEAN CORPUSCULAR HGB CONC 34.3 g/dL (32.0-36.0); MEAN CORPUSCULAR VOLUME 88 fl (80-97); PLATELET COUNT 202 10^3/uL (150-450); RED BLOOD COUNT 4.05 10^6/uL (3.72-5.28); RED CELL DISTRIBUTION WIDTH 12.9 % (11.5-14.0); WHITE BLOOD COUNT 4.7 10^3/uL (4.0-10.5)
[2018-02-03 16:52] LABS: APPEARANCE,URINE SLIGHTLY-CLOUDY; BILIRUBIN,URINE NEGATIVE (NEGATIVE); COLOR,URINE YELLOW; GLUCOSE, URINE >=500 mg/dL (NEGATIVE); KETONES,URINE NEGATIVE (NEGATIVE); LEUKOCYTE ESTERASE,URINE NEGATIVE (NEGATIVE); NITRITE,URINE NEGATIVE (NEGATIVE); PROTEIN,URINE NEGATIVE (NEGATIVE); URINE SPECIFIC GRAVITY 1.023
[2018-02-03 17:04] LABS: ANION GAP 8 (5-19); BLOOD UREA NITROGEN 12 mg/dL (7-20); CALCIUM 8.8 mg/dL (8.4-10.2); CARBON DIOXIDE 27 mmol/L (22-30); CHLORIDE 105 mmol/L (98-107); GLUCOSE 163 mg/dL (75-110); POTASSIUM 3.6 mmol/L (3.6-5.0); SODIUM 140.3 mmol/L (137-145)
== END ==
LOC: OD 15:49
PROVIDERS: ATTEND Internal Medicine Nephrology
DX: I12.9 Hypertensive chronic kidney disease with stage 1 through stage 4 chronic kidney disease, or unspecified chronic kidney disease (principal); N18.2 Chronic kidney disease, stage 2 (mild); H35.033 Hypertensive retinopathy, bilateral
CPT/HCPCS: 36415; 80048; 81001; 85027

== ENCOUNTER → 2018-04-07 | Outpatient (CLI) | payer OTHER, MEDICAID | LOC: OD 10:08 | PROVIDERS: ATTEND Internal Medicine Endocrinology, Diabetes & Metabolism | DX: R89.9 Unspecified abnormal finding in specimens from other organs, systems and tissues (principal) | CPT/HCPCS: 36415; 82024 ==

== ENCOUNTER → 2018-06-10 | Outpatient (CLI) | payer OTHER, MEDICAID | LOC: OD 14:06 | PROVIDERS: ATTEND Nurse Practitioner Acute Care | DX: R10.9 Unspecified abdominal pain (principal); R30.0 Dysuria | CPT/HCPCS: 87086 ==

== ENCOUNTER → 2018-09-01 | Outpatient (CLI) | payer OTHER, MEDICAID ==
[2018-09-01 12:38] LABS: ALANINE AMINOTRANSFERASE 35 U/L (9-52); ASPARTATE AMINO TRANSFERASE 30 U/L (14-36)
== END ==
LOC: OD 11:38
PROVIDERS: ATTEND Podiatrist Foot Surgery
DX: B35.1 Tinea unguium (principal)
CPT/HCPCS: 36415; 84450; 84460

== ENCOUNTER 2019-05-28 18:16 | Emergency (ER) | payer OTHER, MEDICAID ==
[2019-05-28] MEDS ORDERED: ASPIRIN 81 MG TABLET, CHEWABLE PO ONE (18:44)
--- NOTE | 2019-05-28 18:48 | ER Document Report ---
ED Medical Screen (RME) - General Chief Complaint: Chest Pain Stated Complaint: CHEST PAIN Time Seen by Provider: 05/28/19 18:41 Primary Care Provider: SONJA AMARO MD [Primary Care Provider] - Follow up as needed Information source: Patient Notes: Patient presents complaining of chest pain that started around 4:00 this morning. Patient had persistent chest pain throughout the day. Patient was hypertensive at home although the blood pressure has come down somewhat from where it was when she was at home. Patient complains of anxiety as well as headache. No nausea or vomiting. Patient tachycardic in triage. I have greeted and performed a rapid initial assessment of this patient. A comprehensive ED assessment and evaluation of the patient, analysis of test results and completion of the medical decision making process will be conducted by additional ED providers. TRAVEL OUTSIDE OF THE [place] IN LAST 30 DAYS: No - Related Data Allergies/Adverse Reactions: doxycycline [Doxycycline] Allergy (Severe, Verified 09/14/17 19:41) Tachycardia latex [Latex] Allergy (Severe, Verified 09/14/17 19:41) rash Home Medications: amlodipine, gabapentin, sertraline, tyzanidine, morphine, movantic, primarin, metformin Past Medical History - Social History Frequency of alcohol use: None Drug Abuse: None - Past Medical History Cardiac Medical History: Reports: Hx Hypertension Denies: Hx Coronary Artery Disease, Hx Heart Attack Pulmonary Medical History: Denies: Hx Asthma, Hx Bronchitis, Hx COPD, Hx Pneumonia Neurological Medical History: Denies: Hx Cerebrovascular Accident, Hx Seizures Renal/ Medical History: Reports: Hx Ovarian Cysts. Denies: Hx Kidney Stones, Hx Peritoneal Dialysis GI Medical History: Reports: Hx Irritable Bowel - constipation Musculoskeltal Medical History: Denies Hx Arthritis Psychiatric Medical History: Reports: Hx Depression - Anxiety Past Surgical History: Reports: Hx Section - x4, Hx Hysterectomy, Hx Orthopedic Surgery - bone fusions in both feet.; back surgeries - Immunizations Hx Diphtheria, Pertussis, Tetanus Vaccination: No Physical Exam - Vital signs Vitals: Temp Pulse Resp BP Pulse Ox 98.8 F 132 H 18 169/114 H 98 05/28/19 18:31 05/28/19 18:31 05/28/19 18:31 05/28/19 18:31 05/28/19 18:31 - Cardiovascular Rhythm: Tachycardia Heart sounds: S1 appreciated, S2 appreciated Murmur: No Course - Vital Signs Vital signs: Temp Pulse Resp BP Pulse Ox 98.8 F 132 H 18 169/114 H 98 05/28/19 18:31 05/28/19 18:31 05/28/19 18:31 05/28/19 18:31 05/28/19 18:31 Doctor's Discharge - Discharge Referrals: SONJA AMARO MD [Primary Care Provider] - Follow up as needed
--- NOTE | 2019-05-28 18:56 | ER Document Report ---
ED General - General Chief Complaint: Chest Pain Stated Complaint: CHEST PAIN Time Seen by Provider: 05/28/19 18:41 Primary Care Provider: SONJA AMARO MD [Primary Care Provider] - Follow up as needed Notes: Patient is a 48-year-old female with hypertension that presents to the emergency department for chief complaint of headache and chest pain. Patient reports she is been having symptoms since around 4 AM early this morning. She currently rates her headache as a 9 out of 10 she has as an aching sensation, with associated photophobia and seeing blue and purple spots. She is also been having substernal chest pain described as a tightness sensation and a 3 out of 10, that is been constant, nonradiating, not better or worse with exertion or rest. She denies any associated nausea or vomiting or shortness of breath with this. Denies prior history of cardiac disease, denies CAD or stents. She takes amlodipine only for her blood pressure, and missed a few days until today. Denies any other complaints at this time. Past Medical History: Polio, diabetes mellitus, hypertension Past Surgical History: Bilateral feet surgery, neck fusion, hysterectomy Social History: Denies tobacco, alcohol or drug use. Family History: Reviewed and noncontributory for presenting illness Allergies: Reviewed, see documented allergy list. REVIEW OF SYSTEMS: Other than noted above, the 12 point review of systems was reviewed with the patient and were negative, all pertinent findings are included in the HPI. PHYSICAL EXAMINATION: Vital signs reviewed, nursing noted reviewed. GENERAL: Patient appears mildly uncomfortable, but in no acute distress. HEAD: Atraumatic, normocephalic. EYES: Eyes appear normal, extraocular movements intact, sclera anicteric, conjunctiva are normal. ENT: nares patent, oropharynx clear without exudates. Moist mucous membranes. NECK: Normal range of motion, supple without lymphadenopathy LUNGS: Breath sounds clear to auscultation bilaterally and equal. No wheezes rales or rhonchi. HEART: Heart rate tachycardic, regular rhythm, no audible murmur. ABDOMEN: Soft, obese, nontender, normoactive bowel sounds. No rebound, guarding, or rigidity. No masses appreciated. EXTREMITIES: Nontender, good range of motion, trace bilateral lower extremity edema. NEUROLOGICAL: No focal neurological deficits. Moves all extremities spontaneously Motor and sensory grossly intact on exam. PSYCH: Normal mood, normal affect. SKIN: Warm, Dry, normal turgor, no rashes or lesions noted on exposed skin TRAVEL OUTSIDE OF THE [place] IN LAST 30 DAYS: No - Related Data Allergies/Adverse Reactions: doxycycline [Doxycycline] Allergy (Severe, Verified 09/14/17 19:41) Tachycardia latex [Latex] Allergy (Severe, Verified 09/14/17 19:41) rash Home Medications: amlodipine, gabapentin, sertraline, tyzanidine, morphine, movantic, primarin, metformin Past Medical History - General Information source: Patient - Social History Smoking Status: Never Smoker Frequency of alcohol use: None Drug Abuse: None Family History: Reviewed & Not Pertinent Patient has suicidal ideation: No Patient has homicidal ideation: No - Past Medical History Cardiac Medical History: Reports: Hx Hypertension Denies: Hx Coronary Artery Disease, Hx Heart Attack Pulmonary Medical History: Denies: Hx Asthma, Hx Bronchitis, Hx COPD, Hx Pneumonia Neurological Medical History: Denies: Hx Cerebrovascular Accident, Hx Seizures Renal/ Medical History: Reports: Hx Ovarian Cysts. Denies: Hx Kidney Stones, Hx Peritoneal Dialysis GI Medical History: Reports: Hx Irritable Bowel - constipation Musculoskeletal Medical History: Denies Hx Arthritis Psychiatric Medical History: Reports: Hx Depression - Anxiety Past Surgical History: Reports: Hx Section - x4, Hx Hysterectomy, Hx Orthopedic Surgery - bone fusions in both feet.; back surgeries - Immunizations Hx Diphtheria, Pertussis, Tetanus Vaccination: No Physical Exam - Vital signs Vitals: Temp Pulse Resp BP Pulse Ox 98.8 F 132 H 18 169/114 H 98 05/28/19 18:31 05/28/19 18:31 05/28/19 18:31 05/28/19 18:31 05/28/19 18:31 Course - Re-evaluation Re-evalutation: Patient seen and examined, vital signs reviewed. Patient was noted to be markedly hypertensive, and tachycardic, and appeared anxious, but otherwise her exam was benign. Blood work was obtained including a d-dimer troponin, and CBC and CMP. Her blood work demonstrated a slightly elevated d-dimer, therefore CTA was ordered, which was negative for pulmonary embolism. Her troponin was negative, CMP unremarkable, only mild leukocytosis. Without signs of infection on her exam, or blood work. I did order a CT of her head, which was negative as well, at this point feel the patient can be discharged, her blood pressure had come down with a single dose of labetalol and maintain there, she was given Reglan for her headache, which is since resolved, and otherwise appears much improved. She was also given a dose of Ativan as she was mildly anxious, and this is helped with that as well. I advised that she stick to taking her current blood pressure medication regimen, as she missed a few doses which may have caused her hypertensive episode today, and to follow-up with her primary care physician have it rechecked in the office. Laboratory 05/28/19 05/28/19 05/28/19 19:09 19:09 19:09 WBC 10.8 H RBC 5.20 Hgb 14.9 Hct 44.3 MCV 85 MCH 28.7 MCHC 33.6 RDW 13.2 Plt Count 251 Lymph % (Auto) 18.3 Addison % (Auto) 5.6 Eos % (Auto) 0.8 Baso % (Auto) 0.7 Absolute Neuts (auto) 8.0 Absolute Lymphs (auto) 2.0 Absolute Monos (auto) 0.6 Absolute Eos (auto) 0.1 Absolute Basos (auto) 0.1 Seg Neutrophils % 74.6 D-Dimer Sodium 140.4 Potassium 3.6 Chloride 100 Carbon Dioxide 27 Anion Gap 13 BUN 10 Creatinine 0.37 L Est GFR ( Amer) > 60 Est GFR (MDRD) Non-Af > 60 Glucose 199 H Calcium 10.2 Total Bilirubin 0.8 Direct Bilirubin 0.2 Neonat Total Bilirubin Not Reportable Neonat Direct Bilirubin Not Reportable Neonat Indirect Bili Not Reportable AST 52 H ALT 42 Alkaline Phosphatase 94 Troponin I < 0.012 Total Protein 8.5 H Albumin 4.6 TSH 05/28/19 05/28/19 19:09 19:09 WBC RBC Hgb Hct MCV MCH MCHC RDW Plt Count Lymph % (Auto) Addison % (Auto) Eos % (Auto) Baso % (Auto) Absolute Neuts (auto) Absolute Lymphs (auto) Absolute Monos (auto) Absolute Eos (auto) Absolute Basos (auto) Seg Neutrophils % D-Dimer 0.54 H Sodium Potassium Chloride Carbon Dioxide Anion Gap BUN Creatinine Est GFR ( Amer) Est GFR (MDRD) Non-Af Glucose Calcium Total Bilirubin Direct Bilirubin Neonat Total Bilirubin Neonat Direct Bilirubin Neonat Indirect Bili AST ALT Alkaline Phosphatase Troponin I Total Protein Albumin TSH 1.04 Chest X-Ray 05/28/19 18:44 IMPRESSION: No acute abnormality of the lungs. No focal airspace opacity. Head CT 05/28/19 19:14 IMPRESSION: No acute intracranial pathology. No noncontrast CT findings to explain headache. EVIDENCE OF ACUTE STROKE: NO. Chest/Abdomen CTA 05/28/19 19:42 IMPRESSION: No acute pulmonary embolism. - Vital Signs Vital signs: Temp Pulse Resp BP Pulse Ox 98.8 F 132 H 24 H 158/86 H 96 05/28/19 18:31 05/28/19 18:31 05/28/19 20:13 05/28/19 20:13 05/28/19 20:13 - Laboratory Result Diagrams: 05/28/19 19:09 05/28/19 19:09 Laboratory results interpreted by me: 05/28/19 05/28/19 05/28/19 19:09 19:09 19:09 WBC 10.8 H D-Dimer 0.54 H Creatinine 0.37 L Glucose 199 H AST 52 H Total Protein 8.5 H Discharge - Discharge Clinical Impression: Hypertensive urgency Chest pain Qualifiers: Chest pain type: unspecified Qualified Code(s): R07.9 - Chest pain, unspecified Condition: Stable Disposition: HOME, SELF-CARE Instructions: High Blood Pressure, Requiring Treatment ([facility]) Additional Instructions: Please continue taking your current medications as directed and follow-up with your primary care physician to have a repeat blood pressure check. Referrals: SONJA AMARO MD [Primary Care Provider] - Follow up in 3-5 days
--- NOTE | 2019-05-28 19:12 | RADIOLOGY REPORT (SQ) ---
EXAM DESCRIPTION: CHEST 2 VIEWS COMPLETED DATE/TIME: 05/28/2019 7:04 pm REASON FOR STUDY: cp COMPARISON: None. EXAM PARAMETERS: NUMBER OF VIEWS: two views TECHNIQUE: Digital Frontal and Lateral radiographic views of the chest acquired. RADIATION DOSE: NA LIMITATIONS: none FINDINGS: LUNGS AND PLEURA: No opacities, masses or pneumothorax. No pleural effusion. MEDIASTINUM AND HILAR STRUCTURES: No masses or contour abnormalities. HEART AND VASCULAR STRUCTURES: Heart normal size. No evidence for failure. BONES: Disc degenerative disease of the thoracic spine. HARDWARE: None in the chest. OTHER: No other significant finding. IMPRESSION: No acute abnormality of the lungs. No focal airspace opacity. TECHNICAL DOCUMENTATION: JOB ID: [id number] [employer]- All Rights Reserved Reading location - IP/workstation name: [email or web address]
[2019-05-28] MEDS ORDERED: LABETALOL HCL INJ 20 MG/4 ML DISP.SYRIN IV ONE (19:14)
[2019-05-28] MEDS ORDERED: METOCLOPRAMIDE HCL INJ/PF 10 MG/2 ML SDV IV ONE (19:14)
[2019-05-28 19:26] LABS: ABSOLUTE BASOPHILS # (AUTO) 0.1 10^3/uL (0.0-0.2); ABSOLUTE EOSINOPHILS # (AUTO) 0.1 10^3/uL (0.0-0.6); ABSOLUTE MONOCYTES (AUTO) 0.6 10^3/uL (0.1-1.4); BASOPHILS % (AUTO) 0.7 % (0-2); EOSINOPHILS % (AUTO) 0.8 % (0-6); HEMATOCRIT 44.3 % (36.0-47.0); HEMOGLOBIN 14.9 g/dL (12.0-15.5); LYMPHOCYTES % (AUTO) 18.3 % (13-45); MEAN CORPUSCULAR HEMOGLOBIN 28.7 pg (27.0-33.4); MEAN CORPUSCULAR HGB CONC 33.6 g/dL (32.0-36.0); MEAN CORPUSCULAR VOLUME 85 fl (80-97); MONOCYTES % (AUTO) 5.6 % (3-13); PLATELET COUNT 251 10^3/uL (150-450); RED CELL DISTRIBUTION WIDTH 13.2 % (11.5-14.0); SEGMENTED NEUTROPHILS % (AUTO) 74.6 % (42-78); TOTAL CELLS COUNTED % (AUTO) 100 %; WHITE BLOOD COUNT 10.8 10^3/uL (4.0-10.5)
--- NOTE | 2019-05-28 19:43 | RADIOLOGY REPORT (SQ) ---
EXAM DESCRIPTION: CT HEAD WITHOUT COMPLETED DATE/TIME: 05/28/2019 7:33 pm REASON FOR STUDY: headache COMPARISON: 07/03/2017 TECHNIQUE: Axial images acquired through the brain without intravenous contrast. Images reviewed wi th bone, brain and subdural windows. Additional sagittal and coronal reconstructions were generated. Images stored on PACS. All CT scanners at this facility use dose modulation, iterative reconstruction, and/or weight based d osing when appropriate to reduce radiation dose to as low as reasonably achievable (ALARA). [facility]: Dose Right [facility]: CareDose [facility]: Dose Right [facility]: Teradose 4D [facility]: VisConPro RADIATION DOSE: 910 mGy cm LIMITATIONS: None. FINDINGS: VENTRICLES: Normal size and contour. CEREBRUM: No masses. No hemorrhage. No midline shift. No evidence for acute infarction. Normal gra y/white matter differentiation. No areas of low density in the white matter. CEREBELLUM: No masses. No hemorrhage. No alteration of density. No evidence for acute infarction. EXTRAAXIAL SPACES: No fluid collections. No masses. ORBITS AND GLOBE: No intra- or extraconal masses. Normal contour of globe without masses. CALVARIUM: No fracture. PARANASAL SINUSES: No fluid or mucosal thickening. SOFT TISSUES: No mass or hematoma. OTHER: No other significant finding. IMPRESSION: No acute intracranial pathology. No noncontrast CT findings to explain headache. EVIDENCE OF ACUTE STROKE: NO. COMMENT: Quality ID # [id number]: Final reports with documentation of one or more dose reduction techniques (e.g., Automated exposure control, adjustment of the mA and/or kV according to patient size, use of iterative reconstruction technique) TECHNICAL DOCUMENTATION: JOB ID: [id number] [employer]- All Rights Reserved Reading location - IP/workstation name: [email or web address]
[2019-05-28 19:45] LABS: ALBUMIN 4.6 g/dL (3.5-5.0); ALKALINE PHOSPHATASE 94 U/L (38-126); ANION GAP 13 (5-19); ASPARTATE AMINO TRANSFERASE 52 U/L (14-36); BILIRUBIN,DIRECT 0.2 mg/dL (0.0-0.4); BILIRUBIN,TOTAL 0.8 mg/dL (0.2-1.3); BLOOD UREA NITROGEN 10 mg/dL (7-20); CALCIUM 10.2 mg/dL (8.4-10.2); CARBON DIOXIDE 27 mmol/L (22-30); CHLORIDE 100 mmol/L (98-107); GLUCOSE 199 mg/dL (75-110); POTASSIUM 3.6 mmol/L (3.6-5.0); TOTAL PROTEIN 8.5 g/dL (6.3-8.2)
[2019-05-28] MEDS ORDERED: LORAZEPAM INJ 2 MG/1 ML VIAL IV ONE (20:31)
--- NOTE | 2019-05-28 20:34 | RADIOLOGY REPORT (SQ) ---
CT CHEST ANGIOGRAPHY WITHOUT THEN WITH IV CONTRAST EXAM DATE: 05/28/2019 7:42 PM CDT HISTORY: Shortness of breath. COMPARISON: None. TECHNIQUE: CT angiogram of the chest with IV contrast. 3-D MIP images were obtained in coronal and sagittal reconstructions. This exam was performed according to our departmental dose-optimization program, which includes automated exposure control, adjustment of the mA and/or kV according to patient size and/or use of iterative reconstruction technique. FINDINGS: No filling defects are identified in the pulmonary trunk, main left and right pulmonary arteries, or the segmental branches. The thyroid gland is normal. No mediastinal or hilar adenopathy. The heart size is normal without pericardial effusion. The thoracic aorta is normal caliber. No consolidation, pleural effusion, or pneumothorax is identified. The visualized upper abdomen demonstrates no acute findings. No acute osseous findings are seen. IMPRESSION: No acute pulmonary embolism.
[2019-05-28 20:43] VITALS: BP 143/83
--- NOTE | 2019-05-28 22:54 | EKG REPORT ---
SEVERITY:- ABNORMAL ECG - SINUS TACHYCARDIA NONSPECIFIC T ABNORMALITIES, DIFFUSE LEADS : Confirmed by: Chyna Jones MD 28-May-2019 22:53:31
== END 2019-05-28 20:54 | disposition home or self-care (01) ==
LOC: ER 18:16
DX: I16.0 Hypertensive urgency (principal); R07.9 Chest pain, unspecified; R51 Headache; I10 Essential (primary) hypertension; Z91.040 Latex allergy status; Z90.710 Acquired absence of both cervix and uterus
CPT/HCPCS: 93005; 36415; 84443; 85025; 80053; 84484; 85379; 71046; 70450; 71275; 93010; J3490; J2765; J2060; 96374; 96375; 99285

== ENCOUNTER → 2020-03-25 | Outpatient (CLI) | payer OTHER, MEDICAID ==
[2020-03-25 11:28] LABS: ALBUMIN 3.7 g/dL (3.5-5.0); ALKALINE PHOSPHATASE 61 U/L (38-126); ANION GAP 11 (5-19); ASPARTATE AMINO TRANSFERASE 41 U/L (14-36); BILIRUBIN,DIRECT 0.3 mg/dL (0.0-0.4); BILIRUBIN,TOTAL 0.5 mg/dL (0.2-1.3); BLOOD UREA NITROGEN 17 mg/dL (7-20); CALCIUM 8.8 mg/dL (8.4-10.2); CARBON DIOXIDE 20 mmol/L (22-30); CHLORIDE 105 mmol/L (98-107); GLUCOSE 104 mg/dL (75-110); POTASSIUM 4.2 mmol/L (3.6-5.0); TOTAL PROTEIN 6.9 g/dL (6.3-8.2)
[2020-03-26 11:37] LABS: CREATININE URINE 255.9 mg/dL (Not Estab.); MICROALBUMIN URINE 85.6 ug/mL (Not Estab.)
== END ==
LOC: OD 09:50
PROVIDERS: ATTEND Family Medicine
DX: E11.9 Type 2 diabetes mellitus without complications (principal)
CPT/HCPCS: 36415; 80053; 82043; 82570; 83036

== ENCOUNTER → 2020-05-14 | Outpatient (CLI) | payer OTHER, MEDICAID ==
--- NOTE | 2020-05-14 15:18 | WOMENS IMAGING REPORT ---
EXAM DESCRIPTION: 3D SCREENING MAMMO BILAT IMAGES COMPLETED DATE/TIME: 05/14/2020 2:02 pm REASON FOR STUDY: Z12.31 ENCNTR SCREEN MAMMOGRAM FOR MALIGNANT NEOPLASM OF BREAST Z12.31 ENCNTR SCR EEN MAMMOGRAM FOR MALIGNANT NEOPLASM OF SHIRIN COMPARISON: 2017 EXAM PARAMETERS: Views: Standard craniocaudal and mediolateral oblique views of each breast recorded using digital acquisition and breast tomosynthesis. Read with the assistance of CAD. .[facility] - R2 [employer] Version 9.2 LIMITATIONS: None. FINDINGS: No suspicious masses, suspicious calcifications or architectural distortion. No areas of c oncern. IMPRESSION: NEGATIVE MAMMOGRAM. BIRADS 1. BREAST DENSITY: b. There are scattered areas of fibroglandular density. BIRAD: ASSESSMENT: 1 NEGATIVE RECOMMENDATION: ROUTINE SCREENING COMMENT: The patient has been notified of the results by letter per MQSA requirements. Additional no tification policies are in place for contacting patient with suspicious or incomplete findings. Quality ID #[id number]: The [place] [employer] recommends an annual screening mammogram for women aged 40 years or over. This facility utilizes a reminder system to ensure that all patients receive reminder letters, and/or direct phone calls for appointments. This includes reminders for routine scr eening mammograms, diagnostic mammograms, or other Breast Imaging Interventions when appropriate. Th is patient will be placed in the appropriate reminder system. TECHNICAL DOCUMENTATION: FINDING NUMBER: (1) ASSESSMENT: (1) JOB ID: [id number] 2010 [employer]- All Rights Reserved Reading location - IP/workstation name: [email or web address]
== END ==
LOC: WI 13:40
PROVIDERS: ATTEND Family Medicine
DX: Z12.31 Encounter for screening mammogram for malignant neoplasm of breast (principal)
CPT/HCPCS: 77063; 77067

== ENCOUNTER 2020-07-14 15:08 | Emergency (ER) | payer OTHER, MEDICAID ==
[2020-07-14] MEDS ORDERED: KETOROLAC TROMETHAMINE INJ/PF 30 MG/1 ML SDV IV ONE (15:43)
[2020-07-14] MEDS ORDERED: NORMAL SALINE 1000 ML 1,000 ML IV ONE ×2 (15:50→18:44)
[2020-07-14 15:56] LABS: ABSOLUTE BASOPHILS # (AUTO) 0.1 10^3/uL (0.0-0.2); ABSOLUTE EOSINOPHILS # (AUTO) 0.1 10^3/uL (0.0-0.6); ABSOLUTE LYMPHOCYTES (AUTO) 1.1 10^3/uL (0.5-4.7); ABSOLUTE MONOCYTES (AUTO) 0.3 10^3/uL (0.1-1.4); ABSOLUTE NEUT (AUTO) 6.3 10^3/uL (1.7-8.2); BASOPHILS % (AUTO) 0.7 % (0-2); EOSINOPHILS % (AUTO) 1.5 % (0-6); HEMATOCRIT 37.2 % (36.0-47.0); HEMOGLOBIN 12.6 g/dL (12.0-15.5); LYMPHOCYTES % (AUTO) 14.2 % (13-45); MEAN CORPUSCULAR HEMOGLOBIN 30.3 pg (27.0-33.4); MEAN CORPUSCULAR VOLUME 89 fl (80-97); MONOCYTES % (AUTO) 4.2 % (3-13); PLATELET COUNT 243 10^3/uL (150-450); RED BLOOD COUNT 4.18 10^6/uL (3.72-5.28); RED CELL DISTRIBUTION WIDTH 13.5 % (11.5-14.0); SEGMENTED NEUTROPHILS % (AUTO) 79.4 % (42-78); TOTAL CELLS COUNTED % (AUTO) 100 %
[2020-07-14 15:59] LABS: PROTHROMBIN TIME 11.3 SEC (11.4-15.4)
[2020-07-14 16:02] LABS: ALBUMIN 4.1 g/dL (3.5-5.0); ALKALINE PHOSPHATASE 60 U/L (38-126); ANION GAP 6 (5-19); ASPARTATE AMINO TRANSFERASE 26 U/L (14-36); BILIRUBIN,DIRECT 0.1 mg/dL (0.0-0.4); BILIRUBIN,TOTAL 0.7 mg/dL (0.2-1.3); BLOOD UREA NITROGEN 9 mg/dL (7-20); CALCIUM 9.7 mg/dL (8.4-10.2); CARBON DIOXIDE 30 mmol/L (22-30); CHLORIDE 102 mmol/L (98-107); GLUCOSE 117 mg/dL (75-110); POTASSIUM 3.4 mmol/L (3.6-5.0); TOTAL PROTEIN 7.5 g/dL (6.3-8.2)
--- NOTE | 2020-07-14 16:41 | ER Document Report ---
Entered by ERICKA RHOADES SCRIBE 07/14/20 1015 Acting as scribe for:LUCIA BELL MD ED GI/ - General Chief Complaint: Abdominal Pain Stated Complaint: ABDOMINAL PAIN Primary Care Provider: SONJA AMARO MD [Primary Care Provider] - Follow up as needed Information source: Patient Notes: This 50-year-old female patient in pain management on 15 mg of morphine 3 times daily presents today with complaints of left lower quadrant abdominal pain. Patient has a history of diverticulitis and she states her abdominal pain today feels like previous diverticulitis. Patient states the pain began yesterday and got much worse this morning. Patient vomited yesterday. She last took her pain medication at 7 AM this morning. TRAVEL OUTSIDE OF THE [place] IN LAST 30 DAYS: No - Related Data Allergies/Adverse Reactions: doxycycline [Doxycycline] Allergy (Severe, Verified 09/14/17 19:41) Tachycardia latex [Latex] Allergy (Severe, Verified 09/14/17 19:41) rash Past Medical History - General Information source: Patient - Social History Smoking Status: Former Smoker Cigarette use (# per day): No Frequency of alcohol use: None Drug Abuse: None Lives with: Family Family History: Reviewed & Not Pertinent Patient has homicidal ideation: No - Past Medical History Cardiac Medical History: Reports: Hx Hypertension Renal/ Medical History: Reports: Hx Ovarian Cysts GI Medical History: Reports: Hx Diverticulitis, Hx Irritable Bowel - constipation Psychiatric Medical History: Reports: Hx Depression - Anxiety Past Surgical History: Reports: Hx Section - x4, Hx Hysterectomy, Hx Orthopedic Surgery - bone fusions in both feet.; back surgeries - Immunizations Hx Diphtheria, Pertussis, Tetanus Vaccination: No Review of Systems - Review of Systems Constitutional: No symptoms reported EENT: No symptoms reported Cardiovascular: No symptoms reported Respiratory: No symptoms reported Gastrointestinal: See HPI, Abdominal pain, Nausea, Vomiting Genitourinary: No symptoms reported Female Genitourinary: No symptoms reported Musculoskeletal: No symptoms reported Skin: No symptoms reported Hematologic/Lymphatic: No symptoms reported Neurological/Psychological: No symptoms reported -: Yes All other systems reviewed and negative Physical Exam - Vital signs Vitals: Temp Pulse Resp BP Pulse Ox 98.2 F 87 20 146/108 H 100 07/14/20 15:16 07/14/20 15:16 07/14/20 15:16 07/14/20 15:16 07/14/20 15:16 - Notes Notes: Physical Exam: General: Alert. Complains of abdominal pain. HEENT: Normocephalic. Atraumatic. PERRL. Extraocular movements intact. Oropharynx clear. Neck: Supple. Non-tender. Respiratory: No respiratory distress. Clear and equal breath sounds bilaterally. Cardiovascular: Regular rate and rhythm. Abdominal: Tenderness anywhere in the abdomen causes pain in the left lower quadrant. Obese. Normal Bowel Sounds. Back: No gross abnormalities. Extremities: Moves all four extremities. Upper extremities: Normal inspection. Normal ROM. Lower extremities: Normal inspection. No edema. Normal ROM. Neurological: Normal cognition. AAOx4. Normal speech. Psychological: Normal affect. Normal Mood. Skin: Warm. Dry. Normal color. Course - Re-evaluation Re-evalutation: 07/14/20 19:17 The case was discussed with Dr. Mejía. He reviewed the CT findings and images and feels that she has fecalization of the distal small bowel near the cecum. Likely due to chronic narcotic use. Her urine specific gravity was a little elevated. BUN was not elevated. White blood cell count was unremarkable with an ANC of 6.3 07/14/20 19:58 CRP came back and it is 10.1 which is right at the cutoff for normal. - Vital Signs Vital signs: Temp Pulse Resp BP Pulse Ox 98.4 F 71 16 151/98 H 100 07/14/20 19:09 07/14/20 19:09 07/14/20 19:09 07/14/20 19:09 07/14/20 19:09 - Laboratory Results Result Diagrams: 07/14/20 15:24 07/14/20 15:24 Laboratory Results Interpreted: 07/14/20 07/14/20 07/14/20 15:24 15:24 15:24 Seg Neutrophils % 79.4 H PT 11.3 L Potassium 3.4 L Creatinine 0.47 L Glucose 117 H C-Reactive Protein 07/14/20 15:24 Seg Neutrophils % PT Potassium Creatinine Glucose C-Reactive Protein 10.1 H Critical Laboratory Results Reviewed: No Critical Results - Radiology Results Critical Radiology Results Reviewed: No Critical Results - See the radiologist report. Discharge - Discharge Clinical Impression: Enteritis, Constipation by delayed colonic transit Abdominal pain Qualifiers: Abdominal location: left lower quadrant Qualified Code(s): R10.32 - Left lower quadrant pain Condition: Stable Disposition: HOME, SELF-CARE Additional Instructions: Abdominal Pain There are many causes of abdominal pain. Pain can mean a serious problem requiring surgery (such as appendicitis). It can also be an innocent problem that goes away on its own (such as a viral infection). Often, time must pass to determine the cause of pain. The physician does not feel that hospitalization is necessary, at present. Things may change within the next 24 hours. Call the doctor or come back for re- examination if any problems occur, such as: (1) Pain that becomes more severe, steady, or becomes concentrated in one specific area. Also, pain that is more severe with movement or coughing. (2) Vomiting that persists or becomes more frequent. (3) Blood in the vomitus, urine, or bowel movements. Blood in the stool may have a tarry or black appearance. (4) Shaking chills or fever greater than 100 degrees F. (5) The abdomen becomes more distended or swollen. (6) Bowel movements cease. (7) Failure to improve as expected. Your abdominal pain likely seems to be due to constipation starting to involve your small intestine. This is usually seen with a slow transit state such as when the patient is on chronic narcotic management. Drink the entire bottle of the mag citrate by this evening. Drink plenty of fluids throughout the evening and whenever you get up at night to go to the bathroom. Take stool softeners such as MiraLAX every day until your bowels are moving well. Follow-up with your primary care provider if you do not improve. RETURN TO THE EMERGENCY ROOM IF ANY NEW OR WORSENING SYMPTOMS. Referrals: AMARO,SEQUIA A, MD [Primary Care Provider] - Follow up as needed I personally performed the services described in the documentation, reviewed and edited the documentation which was dictated to the scribe in my presence, and it accurately records my words and actions.
--- NOTE | 2020-07-14 16:57 | RADIOLOGY REPORT (SQ) ---
EXAM DESCRIPTION: CT ABD/PELVIS WITH IV ONLY IMAGES COMPLETED DATE/TIME: 07/14/2020 4:39 pm REASON FOR STUDY: LLQ abd pain, PMH diverticulitis COMPARISON: None. TECHNIQUE: CT scan of the abdomen and pelvis performed using helical scanning technique with dynamic intravenous contrast injection. No oral contrast. Images reviewed with lung, soft tissue, and bone windows. Reconstructed coronal and sagittal MPR images reviewed. Delayed images for evaluation of the urinary system also acquired. All images stored on PACS. All CT scanners at this facility use dose modulation, iterative reconstruction, and/or weight based d osing when appropriate to reduce radiation dose to as low as reasonably achievable (ALARA). [facility]: Dose Right [facility]: CareDose [facility]: Dose Right [facility]: Teradose 4D [facility]: ReelBig CONTRAST TYPE AND DOSE: contrast/concentration: Isovue 350.00 mmol/ml; Total Contrast Delivered: 98. 9 ml; Total Saline Delivered: 32.5 ml 99 mL Isovue 350- low osmolar. RENAL FUNCTION: BUN 9, creatinine 0.47 RADIATION DOSE: CT Rad equipment meets quality standard of care and radiation dose reduction techniq ues were employed. CTDIvol: 8.4 - 11.8 mGy. DLP: 1009 mGy-cm.. LIMITATIONS: None. FINDINGS: LOWER CHEST: No acute findings. 3 mm left basilar subpleural ground-glass nodule. LIVER: Normal size. 1.3 cm left hepatic lobe cyst. No dilated ducts. SPLEEN: Normal size. No focal lesions. PANCREAS: No masses. No significant calcifications. No adjacent inflammation or peripancreatic fluid collections. Pancreatic duct not dilated. GALLBLADDER: No identified stones by CT criteria. No inflammatory changes to suggest cholecystitis. ADRENAL GLANDS: No significant masses or asymmetry. RIGHT KIDNEY AND URETER: No solid masses. No significant calcifications. No hydronephrosis or hyd roureter. LEFT KIDNEY AND URETER: No solid masses. No significant calcifications. No hydronephrosis or hydr oureter. AORTA AND VESSELS: No aneurysm. No dissection. Renal arteries, SMA, celiac without stenosis. RETROPERITONEUM: No retroperitoneal adenopathy, hemorrhage or masses. BOWEL AND PERITONEAL CAVITY: Small bowel wall thickening anteriorly measuring up to 8 mm with mild cabrera rrounding inflammatory changes, free fluid and fecalization. Mild colonic diverticular disease witho ut associated surrounding inflammatory changes. APPENDIX: Not visualized. PELVIS: No mass. Mild free fluid. Normal bladder. ABDOMINAL WALL: No masses. No hernias. BONES: No acute findings. OTHER: No other significant finding. IMPRESSION: Acute enteritis likely on the basis of an infectious or inflammatory process. Fecalizat ion of inflamed loops of small bowel indicative of delayed transit. Mild colonic diverticulosis without evidence of acute diverticulitis. TECHNICAL DOCUMENTATION: JOB ID: [id number] Quality ID # [id number]: Final reports with documentation of one or more dose reduction techniques (e.g., Au tomated exposure control, adjustment of the mA and/or kV according to patient size, use of iterative reconstruction technique) 2010 [employer]- All Rights Reserved Reading location - IP/workstation name: [email or web address]
[2020-07-14 17:24] LABS: APPEARANCE,URINE CLEAR; BILIRUBIN,URINE NEGATIVE (NEGATIVE); COLOR,URINE YELLOW; GLUCOSE, URINE NEGATIVE (NEGATIVE); KETONES,URINE NEGATIVE (NEGATIVE); LEUKOCYTE ESTERASE,URINE NEGATIVE (NEGATIVE); NITRITE,URINE NEGATIVE (NEGATIVE); PROTEIN,URINE NEGATIVE (NEGATIVE); URINE SPECIFIC GRAVITY 1.032; UROBILINOGEN,URINE NEGATIVE mg/dL (<2.0)
[2020-07-14] MEDS ORDERED: MAGNESIUM CITRATE 296 ML BOTTLE PO ONE (19:15)
[2020-07-14 20:35] VITALS: BP 156/87
== END 2020-07-14 20:35 | disposition home or self-care (01) ==
LOC: ER 15:08
DX: K59.01 Slow transit constipation (principal); K52.9 Noninfective gastroenteritis and colitis, unspecified; R10.32 Left lower quadrant pain; R11.2 Nausea with vomiting, unspecified; I10 Essential (primary) hypertension; Z87.19 Personal history of other diseases of the digestive system; Z90.710 Acquired absence of both cervix and uterus; Z88.1 Allergy status to other antibiotic agents; Z91.040 Latex allergy status; Z87.891 Personal history of nicotine dependence
CPT/HCPCS: 99284; 96361; 96374; 36415; 85025; 85610; 86140; 80053; 81001; 74177; J3490; J1885; J7030

== ENCOUNTER 2020-07-29 00:45 | Inpatient (IN) | payer OTHER, MEDICAID ==
[2020-07-29 01:09] LABS: ABSOLUTE BASOPHILS # (AUTO) 0.1 10^3/uL (0.0-0.2); ABSOLUTE EOSINOPHILS # (AUTO) 0.1 10^3/uL (0.0-0.6); ABSOLUTE LYMPHOCYTES (AUTO) 1.9 10^3/uL (0.5-4.7); ABSOLUTE MONOCYTES (AUTO) 0.4 10^3/uL (0.1-1.4); ABSOLUTE NEUT (AUTO) 4.2 10^3/uL (1.7-8.2); BASOPHILS % (AUTO) 1.3 % (0-2); HEMATOCRIT 35.3 % (36.0-47.0); HEMOGLOBIN 12.3 g/dL (12.0-15.5); LYMPHOCYTES % (AUTO) 28.8 % (13-45); MEAN CORPUSCULAR HEMOGLOBIN 30.2 pg (27.0-33.4); MEAN CORPUSCULAR HGB CONC 34.7 g/dL (32.0-36.0); MEAN CORPUSCULAR VOLUME 87 fl (80-97); MONOCYTES % (AUTO) 6.7 % (3-13); PLATELET COUNT 227 10^3/uL (150-450); RED BLOOD COUNT 4.07 10^6/uL (3.72-5.28); RED CELL DISTRIBUTION WIDTH 13.3 % (11.5-14.0); SEGMENTED NEUTROPHILS % (AUTO) 62.2 % (42-78); TOTAL CELLS COUNTED % (AUTO) 100 %; WHITE BLOOD COUNT 6.7 10^3/uL (4.0-10.5)
[2020-07-29 01:23] LABS: ALBUMIN 3.8 g/dL (3.5-5.0); ALKALINE PHOSPHATASE 74 U/L (38-126); ASPARTATE AMINO TRANSFERASE 105 U/L (14-36); BILIRUBIN,DIRECT 0.2 mg/dL (0.0-0.4); BILIRUBIN,TOTAL 0.5 mg/dL (0.2-1.3); BLOOD UREA NITROGEN 10 mg/dL (7-20); CALCIUM 8.8 mg/dL (8.4-10.2); CARBON DIOXIDE 30 mmol/L (22-30); CHLORIDE 105 mmol/L (98-107); CREATINE KINASE 45 U/L (30-135); GLUCOSE 129 mg/dL (75-110)
[2020-07-29 01:30] LABS: ANION GAP 3 (5-19)
[2020-07-29 01:35] LABS: CREATINE KINASE MB 0.86 ng/mL (<4.55)
[2020-07-29 01:37] LABS: TROPONIN I < 0.012 ng/mL
--- NOTE | 2020-07-29 01:44 | RADIOLOGY REPORT (SQ) ---
EXAM DESCRIPTION: XR CHEST 1 VIEW COMPLETED DATE/TME: 07/29/2020 01:10 CLINICAL HISTORY: CP COMPARISON: 05/28/2019 FINDINGS: Single frontal radiograph view of the chest. Cardiomediastinal silhouette: Normal size and contour. Lungs: No consolidation, pneumothorax, or pleural effusion. Leads overlie the chest. Bones: No acute osseous abnormality. Incomplete visualization of anterior cervical spine fixation. Degenerative endplate spondylosis of the visualized thoracic and lumbar spine. Upper abdomen: No abnormality identified. IMPRESSION: 1. No acute pulmonary process identified.
[2020-07-29] MEDS ORDERED: NITROGLYCERIN 0.4 MG/TAB 25 TAB/BOTTLE SL ONE (03:11)
[2020-07-29] MEDS ORDERED: NITROGLYCERIN 2% OINTMENT 1 GM PACKET TP ONE (04:33)
[2020-07-29] MEDS ORDERED: ASPIRIN 325 MG TABLET PO ONE (04:34)
--- NOTE | 2020-07-29 05:03 | ER Document Report ---
ED General - General Chief Complaint: Chest Pain Stated Complaint: HTN,CHEST PAIN Time Seen by Provider: 07/29/20 03:00 Primary Care Provider: SONJA AMARO MD [Primary Care Provider] - Follow up as needed Notes: Patient presents to the ER for evaluation of substernal chest pain rated as a 5 out of 5 that began approximately 9 PM today. Per the , the pain has been intermittent over the last several days and tends to correlate with physical exertion. This evening when the pain began, she was laying in bed. She denies fever. She denies cough or congestion. She admits to intermittent shortness of breath related to exertion. She denies nausea or vomiting. Pain does not radiate. Nursing notes reviewed and past medical, social, and family histories reviewed and validated. TRAVEL OUTSIDE OF THE [place] IN LAST 30 DAYS: No - Related Data Allergies/Adverse Reactions: doxycycline [Doxycycline] Allergy (Severe, Verified 09/14/17 19:41) Tachycardia latex [Latex] Allergy (Severe, Verified 09/14/17 19:41) rash Home Medications: Zofran, metformin, hydroxyzine, gabapentin, tizanidine, lactase, losartan, premarin, morphine Past Medical History - General Information source: Patient - Social History Smoking Status: Never Smoker Chew tobacco use (# tins/day): No Frequency of alcohol use: None Drug Abuse: None Lives with: Family Family History: Hypertension, Other - Father Hx: CABG Patient has suicidal ideation: No Patient has homicidal ideation: No - Past Medical History Cardiac Medical History: Reports: Hx Hypertension Denies: Hx Coronary Artery Disease, Hx Heart Attack Pulmonary Medical History: Denies: Hx Asthma, Hx Bronchitis, Hx COPD, Hx Pneumonia EENT Medical History: Reports: None Neurological Medical History: Denies: Hx Cerebrovascular Accident, Hx Seizures Endocrine Medical History: Reports: None Renal/ Medical History: Reports: Hx Ovarian Cysts. Denies: Hx Kidney Stones, Hx Peritoneal Dialysis Malignancy Medical History: Reports: None GI Medical History: Reports: Hx Diverticulitis, Hx Irritable Bowel - constipation Musculoskeletal Medical History: Denies Hx Arthritis Skin Medical History: Reports None Psychiatric Medical History: Reports: Hx Depression - Anxiety Traumatic Medical History: Reports: None Infectious Medical History: Reports: None Past Surgical History: Reports: Hx Section - x4, Hx Hysterectomy, Hx Or thopedic Surgery - bone fusions in both feet.; back surgeries - Immunizations Immunizations up to date: Yes Hx Diphtheria, Pertussis, Tetanus Vaccination: No Review of Systems - Review of Systems Notes: Constitutional: Negative for fever. HENT: Negative for sore throat. Eyes: Negative for visual changes. Cardiovascular: Positive for chest pain. Respiratory: Positive for shortness of breath. Gastrointestinal: Negative for abdominal pain, vomiting or diarrhea. Genitourinary: Negative for dysuria. Musculoskeletal: Negative for back pain. Skin: Negative for rash. Neurological: Negative for headaches, weakness or numbness. 10 point ROS negative except as marked above and in HPI. Physical Exam - Vital signs Vitals: Temp 99.2 F 07/29/20 00:47 - Notes Notes: CONSTITUTIONAL: The patient is in mild distress. She appears to be in pain. SKIN: Warm, dry, and intact without rash EYES: Extraocular movements are grossly intact, clear conjunctiva HENT: Normocephalic, atraumatic, moist mucus membranes NECK: No obvious swelling, normal range of motion PULMONARY: Normal chest rise and fall. Breath sounds clear and equal bilaterally. No respiratory distress or stridor CARDIOVASCULAR: Regular rate. No murmurs, rubs, gallops. Distal extremities are warm and well perfused. ABDOMINAL: Soft, nontender NEUROLOGIC: Normal speech, moves all extremities. MUSCULOSKELETAL: No gross deformities, atraumatic PSYCHIATRIC: Normal mood and affect Course - Re-evaluation Re-evalutation: 07/29/20 05:07 Patient had a dose of nitroglycerin sublingual and experienced complete pain relief. - Vital Signs Vital signs: Temp Pulse Resp BP Pulse Ox 98.7 F 110 H 16 197/101 H 99 07/29/20 03:00 07/29/20 03:24 07/29/20 04:01 07/29/20 04:01 07/29/20 04:01 - Laboratory Results Result Diagrams: 07/29/20 00:49 07/29/20 00:49 Laboratory Results Interpreted: 07/29/20 07/29/20 00:49 00:49 Hct 35.3 L Anion Gap 3 L Glucose 129 H AST 105 H Critical Laboratory Results Reviewed: No Critical Results - Radiology Results Critical Radiology Results Reviewed: No Critical Results - EKG Interpretation by Md EKG shows normal: Sinus rhythm - Consults Hospitalist Consult Time consulted: 05:11 Reason for consultation: 12/28/20 05:11 This case was discussed with Dr. Renae who agrees to evaluate the patient for admission in the emergency room. Discharge - Discharge Clinical Impression: Exertional shortness of breath Chest pain Qualifiers: Chest pain type: unspecified Qualified Code(s): R07.9 - Chest pain, unspecified Condition: Stable Disposition: ADMITTED INPATIENT Admitting Provider: Gena (Hospitalist) Unit Admitted: Telemetry
--- NOTE | 2020-07-29 06:27 | PDOC H&P ---
History of Present Illness Admission Date/PCP: 07/29/20 05:19 SONJA AMARO MD History of Present Illness: HERMELINDO ESPINOZA is a 50 year old female past medical history of polymyositis with multiple surgeries, chronic opioid dependency due to chronic musculoskeletal pain caused by multiple surgeries by poliomyelitis, hypertension, diabetes, presenting to ED complaining of substernal chest pain x1 day. Chest pain is described as substernal, nonradiating, pressure-like, 5/5, worse with coughing or movement, no alleviating factors identified, lasting about 30 minutes an hour. In ED patient was still having chest pain which was resolved with nitroglycerin. Patient denying any history of CAD however does have history of diabetes and hypertension, and his had CABG at age 63. Denies any shortness of breath, fever, chills, nausea, vomiting, constipation or any urinary symptoms. Patient denies any recent chest trauma, heavy lifting. In ED she was noted to be hypertensive, with troponins negative x2, EKG no acute changes, given patient's presentation and risk factors hospitalist was consulted for admission. Past Medical History Cardiac Medical History: Reports: Hypertension Denies: Coronary Artery Disease, Myocardial Infarction Pulmonary Medical History: Denies: Asthma, Bronchitis, Chronic Obstructive Pulmonary Disease (COPD), Pneumonia EENT Medical History: Reports: None Neurological Medical History: Denies: Seizures Endocrine Medical History: Reports: None Malignancy Medical History: Reports: None GI Medical History: Reports: Diverticulitis Musculoskeltal Medical History: Denies: Arthritis Skin Medical History: Reports: None Psychiatric Medical History: Reports: Depression - Anxiety Traumatic Medical History: Reports: None Hematology: Denies: Anemia Infectious Medical History: Reports: None Past Surgical History Past Surgical History: Reports: Section - x4, Hysterectomy, Orthopedic Surgery - bone fusions in both feet.; back surgeries Social History Lives with: Family Smoking Status: Never Smoker Frequency of Alcohol Use: Occasional Hx Recreational Drug Use: No Drugs: None Hx Prescription Drug Abuse: No Family History Family History: Hypertension, Other - Father Hx: CABG Parental Family History Reviewed: Yes Children Family History Reviewed: Yes Sibling(s) Family History Reviewed.: Yes Medication/Allergy Home Medications: Lisinopril 10 mg PO DAILY #14 tablet 09/14/17 Allergies/Adverse Reactions: doxycycline [Doxycycline] Allergy (Severe, Verified 09/14/17 19:41) Tachycardia latex [Latex] Allergy (Severe, Verified 09/14/17 19:41) rash Review of Systems Review of Systems: as per hpi Physical Exam Vital Signs: Temp Pulse Resp BP Pulse Ox 98.7 F 110 H 18 197/89 H 98 07/29/20 03:00 07/29/20 03:24 07/29/20 06:01 07/29/20 06:01 07/29/20 06:01 Intake & Output 07/27/20 07/28/20 07/29/20 06:59 06:59 06:59 Weight 68.039 kg General appearance: PRESENT: no acute distress, well-developed, well-nourished Head exam: PRESENT: atraumatic, normocephalic Respiratory exam: PRESENT: clear to auscultation opal. ABSENT: rales, rhonchi, wheezes Cardiovascular exam: PRESENT: RRR, other - Tenderness to palpation over lateral chest.. ABSENT: diastolic murmur, rubs, systolic murmur GI/Abdominal exam: PRESENT: normal bowel sounds, soft. ABSENT: distended, guarding, mass, organolmegaly, rebound, tenderness Extremities exam: PRESENT: full ROM. ABSENT: calf tenderness, clubbing, pedal edema Neurological exam: PRESENT: alert, awake, oriented to person, oriented to place, oriented to time, oriented to situation, CN II-XII grossly intact. ABSENT: motor sensory deficit Results Laboratory Results: 07/29/20 00:49 07/29/20 00:49 07/29/20 07/29/20 00:49 00:49 WBC 6.7 RBC 4.07 Hgb 12.3 Hct 35.3 L MCV 87 MCH 30.2 MCHC 34.7 RDW 13.3 Plt Count 227 Seg Neutrophils % 62.2 Sodium 138.0 Potassium 4.0 Chloride 105 Carbon Dioxide 30 Anion Gap 3 L BUN 10 Creatinine 0.61 Est GFR ( Amer) > 60 Glucose 129 H Calcium 8.8 Total Bilirubin 0.5 AST 105 H Alkaline Phosphatase 74 Total Protein 7.0 Albumin 3.8 07/29/20 07/29/20 07/29/20 00:49 00:49 03:49 Creatine Kinase 45 CK-MB (CK-2) 0.86 Troponin I < 0.012 < 0.012 Impressions: Chest X-Ray 07/29/20 00:52 IMPRESSION: 1. No acute pulmonary process identified. Assessment and Plan - Diagnosis (1) Chest pain Qualifiers: Chest pain type: unspecified Qualified Code(s): R07.9 - Chest pain, unspecified Is this a current diagnosis for this admission?: Yes Plan: Presenting with somewhat typical chest pain relieved with nitroglycerin however patient also has tenderness to palpation over the left anterior chest. EKG no acute changes, troponins negative x2. Patient risk factors are uncontrolled hypertension and history of diabetes. Admit to telemetry, trend troponins, antiplatelets, beta-blockers, statins. Consult cardiology for further work-up and risk stratification. (2) Poliomyelitis Is this a current diagnosis for this admission?: Yes Plan: History of poliomyelitis with multiple musculoskeletal surgeries and chronic pain opioid dependency. PT/OT. Resume home meds. Supportive measures. (3) Opioid dependence with current use Is this a current diagnosis for this admission?: Yes Plan: Due to chronic musculoskeletal pain. Resume home meds. Outpatient PCP and pain management follow-up. (4) Hypertension Is this a current diagnosis for this admission?: Yes Plan: Appears euvolemic. Uncontrolled. Resume home meds. Adjust meds as needed. Outpatient PCP follow-up. (5) Diabetes Qualifiers: Diabetes mellitus type: type 2 Is this a current diagnosis for this admission?: Yes Plan: Controlled. Hemoglobin A1c 6.0% 03/25/2020. Diabetic diet, hypoglycemia protocol, Accu-Chek. Resume home meds. Adjust meds as needed. Outpatient PCP follow-up. - Time Time Spent with patient: 35 or more minutes Anticipated Discharge Disposition: Home with Home Health Anticipated Discharge Timeframe: within 24 hours
[2020-07-29] MEDS ORDERED: NITROGLYCERIN 0.4 MG/TAB 25 TAB/BOTTLE SL PRN (06:28)
[2020-07-29] MEDS ORDERED: LABETALOL HCL INJ 20 MG/4 ML DISP.SYRIN IV PRN (06:29)
[2020-07-29] MEDS ORDERED: ONDANSETRON HCL INJ/PF 4 MG/2 ML SDV IV PRN (06:30)
[2020-07-29] MEDS ORDERED: MAGNESIUM HYDROXIDE SUSP 30 ML UDCUP PO PRN (06:30)
[2020-07-29] MEDS ORDERED: ACETAMINOPHEN 325 MG TABLET PO PRN (06:30)
[2020-07-29] MEDS ORDERED: PROMETHAZINE HCL INJ 25 MG/1 ML VIAL IV PRN (06:30)
[2020-07-29] MEDS ORDERED: TEMAZEPAM 7.5 MG CAPSULE PO PRN (06:30)
[2020-07-29] MEDS ORDERED: ONDANSETRON 4 MG TAB.RAPDIS PO PRN (06:30)
[2020-07-29] MEDS ORDERED: IPRATROPIUM/ALBUTEROL 0.5-2.5 MG/3 ML AMPUL NEB PRN (06:30)
[2020-07-29] MEDS ORDERED: NORMAL SALINE 1000 ML 1,000 ML IV PRN (06:30)
--- NOTE | 2020-07-29 06:32 | EKG REPORT ---
SEVERITY:- ABNORMAL ECG - SINUS RHYTHM LVH BY VOLTAGE BORDERLINE PROLONGED QT INTERVAL NONSPECIFIC ST-T CHANGES- INFERIOR LEADS : Confirmed by: Himanshu Curry MD 29-Jul-2020 06:32:13
[2020-07-29] MEDS ORDERED: LABETALOL HCL INJ 20 MG/4 ML DISP.SYRIN IV ONE (06:34)
[2020-07-29] MEDS: LOSARTAN POTASSIUM 25 MG TABLET PO SCH (09:33)
[2020-07-29] MEDS: METOPROLOL TARTRATE 25 MG TABLET PO SCH ×2 (09:33→21:50)
[2020-07-29] MEDS: ASPIRIN 81 MG TABLET, CHEWABLE PO SCH (09:34)
[2020-07-29] MEDS: FAMOTIDINE 20 MG TABLET PO SCH ×2 (09:34→21:51)
[2020-07-29] MEDS ORDERED: DOCUSATE SODIUM 100 MG CAPSULE PO SCH (10:00)
--- NOTE | 2020-07-29 12:19 | PDOC CONSULTATION ---
Consultation Consult Date: 07/29/20 Attending physician:: SARI PETERSON Provider Consulted: JOSE DOHERTY Consult reason:: Chest pain History of Present Illness Admission Date/PCP: 07/29/20 05:19 SONJA AMARO MD History of Present Illness: HERMELINDO ESPINOZA is a 50 year old female 50-year-old lady with the following active problems 1. Chronic opioid dependency 2. Chronic musculoskeletal pain 3. Chronic for paralytic polio 4. Systemic hypertension 5. Diabetes mellitus Patient presents with complaints of chest pain that started yesterday afternoon. No prior history of coronary artery disease but does have multiple risk factors for cardiac disease including hypertension and diabetes mellitus. Patient is unemployed. She does not smoke cigarettes. She uses occasional alcohol. There is family for coronary artery disease in the father. Further details are not forthcoming. Past Medical History Cardiac Medical History: Reports: Hypertension Denies: Coronary Artery Disease, Myocardial Infarction Pulmonary Medical History: Denies: Asthma, Bronchitis, Chronic Obstructive Pulmonary Disease (COPD), Pneumonia EENT Medical History: Reports: None Neurological Medical History: Denies: Seizures Endocrine Medical History: Reports: None Malignancy Medical History: Reports: None GI Medical History: Reports: Diverticulitis Musculoskeltal Medical History: Denies: Arthritis Skin Medical History: Reports: None Psychiatric Medical History: Reports: Depression - Anxiety Traumatic Medical History: Reports: None Hematology: Denies: Anemia Infectious Medical History: Reports: None Past Surgical History Past Surgical History: Reports: Section - x4, Hysterectomy, Orthopedic Surgery - bone fusions in both feet.; back surgeries Social History Lives with: Family Smoking Status: Never Smoker Frequency of Alcohol Use: Occasional Hx Recreational Drug Use: No Drugs: None Hx Prescription Drug Abuse: No Family History Family History: Hypertension, Other - Father Hx: CABG Parental Family History Reviewed: Yes - Family history of coronary artery disease in the father Children Family History Reviewed: NA Sibling(s) Family History Reviewed.: NA Medication/Allergy Home Medications: Gabapentin [Neurontin 300 mg Capsule] 300 mg PO Q8 07/29/20 Hydroxyzine Pamoate 25 mg PO Q8 07/29/20 Losartan Potassium [Cozaar 50 mg Tablet] 50 mg PO DAILY 07/29/20 Metformin HCl 1 tab PO BID 07/29/20 Morphine Sulfate [Morphine Ir 15 Mg Tablet] 15 mg PO Q4H MDD 3 TABS/24H 12/28/20 Naloxegol Oxalate [Movantik] 25 mg PO QAM 07/29/20 Ondansetron [Zofran Odt 4 mg Tablet] 4 mg PO DAILY 07/29/20 Tizanidine HCl [Zanaflex 4 Mg Tablet] 4 mg PO HSP PRN 07/29/20 Allergies/Adverse Reactions: doxycycline [Doxycycline] Allergy (Severe, Verified 09/14/17 19:41) Tachycardia latex [Latex] Allergy (Severe, Verified 09/14/17 19:41) rash Review of Systems Constitutional: PRESENT: as per HPI Eyes: PRESENT: as per HPI Ears: PRESENT: as per HPI Cardiovascular: PRESENT: chest pain Respiratory: PRESENT: as per HPI Gastrointestinal: PRESENT: abdominal pain, bloating Neurological: PRESENT: as per HPI Psychiatric: PRESENT: as per HPI, anxiety Physical Exam Vital Signs: Temp Pulse Resp BP Pulse Ox 98.2 F 110 H 19 189/102 H 96 07/29/20 09:47 07/29/20 03:24 07/29/20 09:01 07/29/20 09:01 07/29/20 09:01 Intake & Output 07/28/20 07/29/20 07/30/20 06:59 06:59 06:59 Weight 68.039 kg General appearance: PRESENT: cooperative, mild distress, well-developed, well- nourished Head exam: PRESENT: atraumatic, normocephalic Eye exam: PRESENT: conjunctiva pink, EOMI Respiratory exam: PRESENT: chest wall tenderness Cardiovascular exam: PRESENT: RRR, +S1, +S2 Vascular exam: PRESENT: normal capillary refill GI/Abdominal exam: PRESENT: soft Rectal exam: PRESENT: deferred Neurological exam: PRESENT: alert, awake, oriented to person, oriented to place, oriented to time, oriented to situation Psychiatric exam: PRESENT: appropriate affect Skin exam: PRESENT: dry, intact Results Laboratory Results: 07/29/20 00:49 07/29/20 00:49 07/29/20 07/29/20 00:49 00:49 WBC 6.7 RBC 4.07 Hgb 12.3 Hct 35.3 L MCV 87 MCH 30.2 MCHC 34.7 RDW 13.3 Plt Count 227 Seg Neutrophils % 62.2 Sodium 138.0 Potassium 4.0 Chloride 105 Carbon Dioxide 30 Anion Gap 3 L BUN 10 Creatinine 0.61 Est GFR ( Amer) > 60 Glucose 129 H Calcium 8.8 Total Bilirubin 0.5 AST 105 H Alkaline Phosphatase 74 Total Protein 7.0 Albumin 3.8 07/29/20 07/29/20 07/29/20 00:49 00:49 03:49 Creatine Kinase 45 CK-MB (CK-2) 0.86 Troponin I < 0.012 < 0.012 07/29/20 10:02 Creatine Kinase CK-MB (CK-2) 0.59 Troponin I EKG Comments: Chest x-ray 07/29/2020 no acute pulmonary process identified. Twelve-lead EKG 07/29/2020. 0057 Sinus rhythm, 90 bpm, left ventricular hypertrophy, baseline artifact. Cardiac troponin negative x2 Impressions: Chest X-Ray 07/29/20 00:52 IMPRESSION: 1. No acute pulmonary process identified. Assessment & Plan - Diagnosis (1) Chest pain Qualifiers: Chest pain type: unspecified Qualified Code(s): R07.9 - Chest pain, unspecified Is this a current diagnosis for this admission?: Yes Plan: Clearly patient does have risk factors for coronary artery disease However current presentation is not consistent with myocardial ischemia. Her EKG shows evidence of left ventricular hypertrophy but no evidence of myocardial ischemia Cardiac biomarkers have also been negative Description of chest pain is atypical. Furthermore she has reproducible chest pain in the lower anterior part of the chest as well as pain and discomfort in the right upper quadrant as well as right lateral quadrant. Would prefer restratification later since cardiac biomarkers are negative and EKG is nondiagnostic. (2) Hypertension Is this a current diagnosis for this admission?: Yes Plan: We recommend a higher dose of losartan suggest 50 mg daily Consider uptitrating metoprolol from the current dose of 12-1/2 mg twice daily based on clinical course No added salt in the diet patient's blood pressure is not adequately controlled Consider use of intravenous hydralazine on a as needed basis to better adjust the blood pressure - Notes Notes: Presently cardiac biomarkers are negative and EKG is negative for ischemia. Patient has reproducible chest pain which speaks against myocardial ischemia. However risk factors for \ coronary artery disease exist in this patient and she will benefit from restratification later
--- NOTE | 2020-07-29 14:27 | RADIOLOGY REPORT (SQ) ---
EXAM DESCRIPTION: CT ABD/PELVIS WITH IV ONLY IMAGES COMPLETED DATE/TIME: 07/29/2020 2:08 pm REASON FOR STUDY: severe abdominal pain, RUQ and epigastric, N/V COMPARISON: 07/14/2020 TECHNIQUE: CT scan of the abdomen and pelvis performed using helical scanning technique with dynamic intravenous contrast injection. No oral contrast. Images reviewed with lung, soft tissue, and bone windows. Reconstructed coronal and sagittal MPR images reviewed. Delayed images for evaluation of the urinary system also acquired. All images stored on PACS. All CT scanners at this facility use dose modulation, iterative reconstruction, and/or weight based d osing when appropriate to reduce radiation dose to as low as reasonably achievable (ALARA). [facility]: Dose Right [facility]: CareDose [facility]: Dose Right [facility]: Teradose 4D [facility]: ScheduleThing CONTRAST TYPE AND DOSE: contrast/concentration: Isovue 350.00 mmol/ml; Total Contrast Delivered: 73. 0 ml; Total Saline Delivered: 40.0 ml RENAL FUNCTION: Creatinine 0.6 RADIATION DOSE: CT Rad equipment meets quality standard of care and radiation dose reduction techniq ues were employed. CTDIvol: 9.2 - 9.2 mGy. DLP: 938 mGy-cm.. LIMITATIONS: None. FINDINGS: LOWER CHEST: No significant findings. No nodules or infiltrates. LIVER: Normal size. Unchanged segment 4 cyst. No intrahepatic ductal dilation. SPLEEN: Normal size. No focal lesions. PANCREAS: No masses. No significant calcifications. No adjacent inflammation or peripancreatic fluid collections. Pancreatic duct not dilated. GALLBLADDER: Gallbladder is mildly distended measuring 3.9 cm transversely. Questionable wall thicke ruddy. No pericholecystic fluid. No radiopaque stones. ADRENAL GLANDS: No significant masses or asymmetry. RIGHT KIDNEY AND URETER: No solid masses. No significant calcifications. No hydronephrosis or hyd roureter. LEFT KIDNEY AND URETER: No solid masses. No significant calcifications. No hydronephrosis or hydr oureter. 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 AORTA AND VESSELS: No aneurysm. No dissection. Renal arteries, SMA, celiac without stenosis. RETROPERITONEUM: No retroperitoneal adenopathy, hemorrhage or masses. BOWEL AND PERITONEAL CAVITY: No evidence of intestinal obstruction. No focal bowel wall thickening. Improvement in previously seen dilated small bowel loops and wall thickening. Scattered colonic div erticula. APPENDIX: Not visualized. PELVIS: Incompletely distended. No focal wall thickening. No pelvic free fluid, adenopathy or mass. ABDOMINAL WALL: No masses. No hernias. BONES: No acute bony abnormality. No discrete lytic or blastic osseous lesions. OTHER: No other significant finding. IMPRESSION: 1. Mild distended gallbladder with questionable wall thickening. No pericholecystic in flammatory change or radiopaque stones. Recommend correlation with patient symptoms. Right upper qu adrant ultrasound could be considered for further evaluation. 2. Improvement in previously seen small bowel dilation and wall thickening. 3. No other evidence of acute intra-abdominal/pelvic process. TECHNICAL DOCUMENTATION: JOB ID: [id number] Quality ID # [id number]: Final reports with documentation of one or more dose reduction techniques (e.g., Au tomated exposure control, adjustment of the mA and/or kV according to patient size, use of iterative reconstruction technique) 2010 [employer]- All Rights Reserved Reading location - IP/workstation name: [email or web address]
[2020-07-29] MEDS: HEPARIN SOD (PORCINE) 5,000 UNIT/ML 1 ML VIAL SUBCUT SCH ×2 (14:47→21:50)
--- NOTE | 2020-07-29 16:39 | RADIOLOGY REPORT (SQ) ---
EXAM DESCRIPTION: U/S ABDOMEN LTD W/DOPPLER IMAGES COMPLETED DATE/TIME: 07/29/2020 4:05 pm REASON FOR STUDY: RUQ pain, nausea/vomiting COMPARISON: None. TECHNIQUE: Dynamic and static grayscale images acquired of the abdomen and recorded on PACS. Additio nal selected color Doppler and spectral images recorded. LIMITATIONS: None. FINDINGS: PANCREAS: No masses. Visualized pancreatic duct normal caliber. LIVER: Increased echogenicity with decreased visualization of the portal triads. No focal lesions. No biliary ductal dilation. LIVER VASCULATURE: Normal directional flow of the main portal vein and hepatic veins. GALLBLADDER: Gallbladder is distended measuring 9.9 x 5.2 x 5.2 cm. Multiple dependent stones. Wal l thickening measuring up to 5 mm. No pericholecystic fluid. Areas of comet tail artifact suggestiv e of adenomyomatosis. ULTRASOUND-DETECTED GARCIA'S SIGN: Negative. INTRAHEPATIC DUCTS AND COMMON DUCT: CBD and intrahepatic ducts normal caliber. No filling defects. INFERIOR VENA CAVA: Normal flow. AORTA: No aneurysm. RIGHT KIDNEY: Normal size measuring 10.8 cm. . Normal echogenicity. No solid or suspicious masses. No hydronephrosis. No calcifications. PERITONEAL AND RIGHT PLEURAL SPACE: No ascites or effusions. OTHER: No other significant findings. IMPRESSION: 1. Distended gallbladder with cholelithiasis and wall thickening measuring up to 5 mm s uggestive of cholecystitis. However, negative reported sonographic Garcia's sign without pericholecy stic fluid. Recommend correlation with patient symptoms and lab values. 2. Questionable areas of comet tail artifact which can be seen with adenomyomatosis. 3. Hepatic steatosis. TECHNICAL DOCUMENTATION: JOB ID: [id number] [employer]- All Rights Reserved Reading location - IP/workstation name: [email or web address]
[2020-07-29] MEDS: ATORVASTATIN CALCIUM 40 MG TABLET PO SCH (21:50)
[2020-07-30] MEDS: MORPHINE SULFATE 10 MG/ML INJ IV PRN ×5 (05:27→18:15)
[2020-07-30] MEDS: HEPARIN SOD (PORCINE) 5,000 UNIT/ML 1 ML VIAL SUBCUT SCH ×3 (05:27→22:26)
[2020-07-30 05:54] LABS: ABSOLUTE BASOPHILS # (AUTO) 0.1 10^3/uL (0.0-0.2); ABSOLUTE EOSINOPHILS # (AUTO) 0.1 10^3/uL (0.0-0.6); ABSOLUTE LYMPHOCYTES (AUTO) 1.3 10^3/uL (0.5-4.7); ABSOLUTE MONOCYTES (AUTO) 0.4 10^3/uL (0.1-1.4); ABSOLUTE NEUT (AUTO) 2.9 10^3/uL (1.7-8.2); BASOPHILS % (AUTO) 2.2 % (0-2); EOSINOPHILS % (AUTO) 1.6 % (0-6); HEMATOCRIT 37.3 % (36.0-47.0); LYMPHOCYTES % (AUTO) 27.9 % (13-45); MEAN CORPUSCULAR HEMOGLOBIN 30.4 pg (27.0-33.4); MEAN CORPUSCULAR HGB CONC 34.8 g/dL (32.0-36.0); MEAN CORPUSCULAR VOLUME 87 fl (80-97); MONOCYTES % (AUTO) 7.7 % (3-13); PLATELET COUNT 238 10^3/uL (150-450); RED BLOOD COUNT 4.28 10^6/uL (3.72-5.28); RED CELL DISTRIBUTION WIDTH 13.4 % (11.5-14.0); SEGMENTED NEUTROPHILS % (AUTO) 60.6 % (42-78); TOTAL CELLS COUNTED % (AUTO) 100 %; WHITE BLOOD COUNT 4.8 10^3/uL (4.0-10.5)
[2020-07-30 06:20] LABS: ALBUMIN 4.2 g/dL (3.5-5.0); ALKALINE PHOSPHATASE 261 U/L (38-126); ANION GAP 9 (5-19); ASPARTATE AMINO TRANSFERASE 670 U/L (14-36); BILIRUBIN,DIRECT 2.6 mg/dL (0.0-0.4); BILIRUBIN,TOTAL 3.4 mg/dL (0.2-1.3); BLOOD UREA NITROGEN 7 mg/dL (7-20); CALCIUM 8.8 mg/dL (8.4-10.2); CARBON DIOXIDE 26 mmol/L (22-30); CHLORIDE 101 mmol/L (98-107); GLUCOSE 162 mg/dL (75-110); POTASSIUM 3.9 mmol/L (3.6-5.0); TOTAL PROTEIN 7.8 g/dL (6.3-8.2)
[2020-07-30 06:30] LABS: CHOLESTEROL 327.94 mg/dL (0-200); DIRECT LDL 122 mg/dL (<100); TRIGLYCERIDES 871 mg/dL (<150)
[2020-07-30] MEDS: METOPROLOL TARTRATE 25 MG TABLET PO SCH ×2 (09:33→22:23)
[2020-07-30] MEDS: ASPIRIN 81 MG TABLET, CHEWABLE PO SCH (09:33)
[2020-07-30] MEDS: FAMOTIDINE 20 MG TABLET PO SCH ×2 (09:33→22:22)
[2020-07-30] MEDS: LOSARTAN POTASSIUM 25 MG TABLET PO SCH ×2 (09:33→22:23)
[2020-07-30] MEDS ORDERED: NORMAL SALINE 1000 ML 1,000 ML IV PRN (09:47)
--- NOTE | 2020-07-30 12:10 | PDOC CONSULTATION ---
Consultation Consult Date: 07/30/20 Attending physician:: SARI PETERSON Provider Consulted: JULES GREGG Consult reason:: ruq pain History of Present Illness Admission Date/PCP: 07/29/20 05:19 SONJA AMARO MD History of Present Illness: Patient presents to the ER for evaluation of substernal chest pain rated as a 5 out of 5 that began approximately 9 PM today. Per the , the pain has been intermittent over the last several days and tends to correlate with p hysical exertion. This evening when the pain began, she was laying in bed. She denies fever. She denies cough or congestion. She admits to intermittent shortness of breath related to exertion. She denies nausea or vomiting. Pain radiates the right posterior flank. Patient was admitted by medicine service to rule out a cardiac issue and underwent a ultrasound of her gallbladder which showed some layering of small gallstones in addition that she has had some elevated liver function studies overnight with now a bilirubin of 3.4 surgical consult is obtained for possible cholecystectomy. Past Medical History Cardiac Medical History: Reports: Hypertension Denies: Coronary Artery Disease, Myocardial Infarction Pulmonary Medical History: Denies: Asthma, Bronchitis, Chronic Obstructive Pulmonary Disease (COPD), Pneumonia EENT Medical History: Reports: None Neurological Medical History: Denies: Seizures Endocrine Medical History: Reports: None Malignancy Medical History: Reports: None GI Medical History: Reports: Diverticulitis Musculoskeltal Medical History: Denies: Arthritis Skin Medical History: Reports: None Psychiatric Medical History: Reports: Depression - Anxiety Traumatic Medical History: Reports: None Hematology: Denies: Anemia Infectious Medical History: Reports: None Past Surgical History Past Surgical History: Reports: Section - x4, Hysterectomy, Orthopedic Surgery - bone fusions in both feet.; back surgeries Social History Lives with: Family Smoking Status: Never Smoker Electronic Cigarette use?: No Frequency of Alcohol Use: None Hx Recreational Drug Use: No Drugs: None Hx Prescription Drug Abuse: No Family History Family History: Hypertension, Other - Father Hx: CABG Parental Family History Reviewed: No Children Family History Reviewed: NA Sibling(s) Family History Reviewed.: NA Medication/Allergy Home Medications: Gabapentin [Neurontin 300 mg Capsule] 300 mg PO Q8 07/29/20 Hydroxyzine Pamoate 25 mg PO Q8 07/29/20 Losartan Potassium [Cozaar 50 mg Tablet] 50 mg PO DAILY 07/29/20 Metformin HCl 1 tab PO BID 07/29/20 Morphine Sulfate [Morphine Ir 15 Mg Tablet] 15 mg PO Q4H MDD 3 TABS/24H 07/29/20 Naloxegol Oxalate [Movantik] 25 mg PO QAM 07/29/20 Ondansetron [Zofran Odt 4 mg Tablet] 4 mg PO DAILY 07/29/20 Tizanidine HCl [Zanaflex 4 Mg Tablet] 4 mg PO HSP PRN 07/29/20 Allergies/Adverse Reactions: doxycycline [Doxycycline] Allergy (Severe, Verified 09/14/17 19:41) Tachycardia latex [Latex] Allergy (Severe, Verified 09/14/17 19:41) rash Review of Systems Constitutional: PRESENT: as per HPI, fatigue Eyes: ABSENT: as per HPI, visual disturbances, other Ears: ABSENT: as per HPI, hearing changes, other Nose, Mouth, and Throat: ABSENT: as per HPI, headache(s), mouth pain, sore throat, vertigo, other Breasts: ABSENT: as per HPI, other Cardiovascular: PRESENT: chest pain Respiratory: ABSENT: as per HPI, cough, dyspnea, hemoptysis, sputum, other Gastrointestinal: PRESENT: abdominal pain, nausea, vomiting Genitourinary: ABSENT: as per HPI, difficulty urinating, dysuria, hematuria, nocturia, other Musculoskeletal: ABSENT: as per HPI, back pain, deformity, joint swelling, muscle weakness, other Integumentary: ABSENT: as per HPI, diaphoresis, erythema, lesions, pruritus, rash, wounds, other Neurological: ABSENT: as per HPI, abnormal gait, abnormal movements, abnormal speech, confusion, convulsions, dizziness, focal weakness, frequent falls, lack of coordination, memory loss, numbness, paresthesias, restless legs, syncope, tingling, tremor(s), vertigo, weakness, other Psychiatric: ABSENT: as per HPI, anxiety, depression, hallucinations, homidical ideation, suicidal ideation, other Endocrine: ABSENT: as per HPI, cold intolerance, flushing, heat intolerance, menstrual abnormalities, polydipsia, polyphagia, polyuria, other Hematologic/Lymphatic: ABSENT: as per HPI, easy bleeding, easy bruising, lymphadenopathy, other Allergic/Immunologic: ABSENT: as per HPI, seasonal rhinorrhea, other Physical Exam Vital Signs: Temp Pulse Resp BP Pulse Ox 98.0 F 66 16 167/82 H 92 07/30/20 08:20 07/30/20 08:20 07/30/20 08:20 07/30/20 08:20 07/30/20 08:20 Intake & Output 07/29/20 07/30/20 07/31/20 06:59 06:59 06:59 Intake Total 240 Balance 240 Weight 68.039 kg 66.5 kg General appearance: PRESENT: mild distress Head exam: PRESENT: normocephalic Eye exam: PRESENT: EOMI Ear exam: PRESENT: normal external ear exam Mouth exam: PRESENT: moist Teeth exam: PRESENT: poor dentation Neck exam: PRESENT: full ROM Respiratory exam: PRESENT: clear to auscultation opal Cardiovascular exam: PRESENT: RRR Pulses: PRESENT: normal radial pulses, normal femoral pulses Vascular exam: PRESENT: normal capillary refill Breast: PRESENT: Normal GI/Abdominal exam: PRESENT: soft, tenderness - Gastric and right upper quadrant tenderness Rectal exam: PRESENT: deferred Extremities exam: PRESENT: full ROM Musculoskeletal exam: PRESENT: full ROM Neurological exam: PRESENT: alert, awake, oriented to person, oriented to place Psychiatric exam: PRESENT: anxious, appropriate affect Skin exam: PRESENT: dry Results Laboratory Results: 07/30/20 05:08 07/30/20 05:08 07/30/20 07/30/20 05:08 05:08 WBC 4.8 RBC 4.28 Hgb 13.0 Hct 37.3 MCV 87 MCH 30.4 MCHC 34.8 RDW 13.4 Plt Count 238 Seg Neutrophils % 60.6 Sodium 136.4 L Potassium 3.9 Chloride 101 Carbon Dioxide 26 Anion Gap 9 BUN 7 Creatinine 0.43 L Est GFR ( Amer) > 60 Glucose 162 H Calcium 8.8 Magnesium 2.1 Total Bilirubin 3.4 H AST 670 H Alkaline Phosphatase 261 H Total Protein 7.8 Albumin 4.2 Triglycerides 871 H Cholesterol 327.94 H LDL Cholesterol Direct 122 H HDL Cholesterol 91 07/29/20 07/29/20 07/29/20 00:49 00:49 03:49 Creatine Kinase 45 CK-MB (CK-2) 0.86 Troponin I < 0.012 < 0.012 07/29/20 10:02 Creatine Kinase CK-MB (CK-2) 0.59 Troponin I Impressions: Abdomen Ultrasound 07/29/20 00:00 IMPRESSION: 1. Distended gallbladder with cholelithiasis and wall thickening measuring up to 5 mm suggestive of cholecystitis. However, negative reported sonographic Garcia's sign without pericholecystic fluid. Recommend correlation with patient symptoms and lab values. 2. Questionable areas of comet tail artifact which can be seen with adenomyomatosis. 3. Hepatic steatosis. Abdomen/Pelvis CT 07/29/20 00:00 IMPRESSION: 1. Mild distended gallbladder with questionable wall thickening. No pericholecystic inflammatory change or radiopaque stones. Recommend correlation with patient symptoms. Right upper quadrant ultrasound could be considered for further evaluation. 2. Improvement in previously seen small bowel dilation and wall thickening. 3. No other evidence of acute intra-abdominal/pelvic process. Chest X-Ray 07/29/20 00:52 IMPRESSION: 1. No acute pulmonary process identified. Assessment & Plan - Plan Summary Plan Summary: Patient is cholelithiasis possible choledocholithiasis with elevated liver function studies. Recommendation is for MRCP and if there is a suggestion of common bile duct stones would refer the patient to a tertiary care center for possible intervention by bond trader for ERCP. However if the MRCP does not show common bile duct stones but does show dilated bile ducts would also probably refer the patient out for gastroenterology consultation. If the liver function studies correct and there is no stone seen on MRCP the patient could be cared for here with a laparoscopic cholecystectomy.
[2020-07-30] MEDS: OXYCODONE HCL IR 5 MG TABLET PO PRN ×2 (12:19→18:15)
[2020-07-30] MEDS ORDERED: MAGNESIUM CITRATE 296 ML BOTTLE PO ONE (13:47)
--- NOTE | 2020-07-30 15:17 | RADIOLOGY REPORT (SQ) ---
EXAM DESCRIPTION: MRI ABDOMEN WITHOUT IMAGES COMPLETED DATE/TIME: 07/30/2020 3:08 pm REASON FOR STUDY: mrcp COMPARISON: None. TECHNIQUE: Noncontrast MRCP. Source and MIP images reviewed. LIMITATIONS: Motion artifact. FINDINGS: GALLBLADDER: Gallstones. No inflammatory changes. INTRAHEPATIC DUCTS: Nondilated. EXTRAHEPATIC DUCTS: Common bile duct with abrupt tapering consistent with inflammation or possibly a small stone. Duct is not dilated. PANCREAS: Generally homogeneous, no gross mass or significant signal alteration. No surrounding infl ammatory changes or fluid. Pancreatic duct is normal. LIVER, SPLEEN, KIDNEYS, ADRENALS: No significant abnormality. VESSELS: No evidence of aneurysm. Grossly appropriate flow voids in the major vascular structures. LUNG BASES: Grossly clear. OTHER: No other significant finding. IMPRESSION: Small distal common bile duct stone or stricture. TECHNICAL DOCUMENTATION: JOB ID: [id number] 2010 [employer]- All Rights Reserved Reading location - IP/workstation name: [email or web address]
[2020-07-30] MEDS: NORMAL SALINE 1000 ML 1,000 ML IV PRN ×2 (15:33→20:36)
[2020-07-30] MEDS: SENNOSIDES/DOCUSATE 8.6-50 MG 1 EACH TABLET PO SCH (18:16)
[2020-07-30] MEDS: POLYETHYLENE GLYCOL 3350 POWDER 17 GM/1 PACKET PO SCH (18:16)
[2020-07-30] MEDS ORDERED: TIZANIDINE HCL 4 MG TABLET PO PRN (19:23)
--- NOTE | 2020-07-30 19:39 | PDOC PROGRESS REPORT ---
Subjective Date:: 07/30/20 Subjective:: She is in severe pain, associated with N/V, primarily in RUQ but also epigastric. Reason For Visit: abdominal pain Physical Exam Vital Signs: Temp Pulse Resp BP Pulse Ox 97.9 F 53 L 16 184/79 H 94 07/30/20 15:33 07/30/20 16:51 07/30/20 16:51 07/30/20 15:33 07/30/20 16:51 Intake & Output 07/29/20 07/30/20 07/31/20 06:59 06:59 06:59 Intake Total 240 0 Balance 240 0 Weight 68.039 kg 66.5 kg General appearance: PRESENT: mild distress, obese Eye exam: ABSENT: scleral icterus Mouth exam: PRESENT: dry mucosa Throat exam: ABSENT: post pharyngeal erythema Neck exam: ABSENT: JVD Respiratory exam: PRESENT: clear to auscultation opal Cardiovascular exam: PRESENT: RRR GI/Abdominal exam: PRESENT: distended, normal bowel sounds, soft, tenderness. ABSENT: firm, guarding, rebound, rigid Extremities exam: ABSENT: pedal edema Musculoskeletal exam: PRESENT: ambulatory Neurological exam: PRESENT: alert, awake Psychiatric exam: PRESENT: anxious Skin exam: ABSENT: jaundice Results Laboratory Results: 07/30/20 05:08 07/30/20 05:08 07/30/20 07/30/20 07/30/20 05:08 05:08 05:08 WBC 4.8 RBC 4.28 Hgb 13.0 Hct 37.3 MCV 87 MCH 30.4 MCHC 34.8 RDW 13.4 Plt Count 238 Seg Neutrophils % 60.6 Sodium 136.4 L Potassium 3.9 Chloride 101 Carbon Dioxide 26 Anion Gap 9 BUN 7 Creatinine 0.43 L Est GFR ( Amer) > 60 Glucose 162 H Calcium 8.8 Magnesium 2.1 Total Bilirubin 3.4 H AST 670 H Alkaline Phosphatase 261 H Total Protein 7.8 Albumin 4.2 Triglycerides 871 H Cholesterol 327.94 H LDL Cholesterol Direct 122 H HDL Cholesterol 91 Lipase 8347.7 H 07/29/20 07/29/20 07/29/20 00:49 00:49 03:49 Creatine Kinase 45 CK-MB (CK-2) 0.86 Troponin I < 0.012 < 0.012 07/29/20 10:02 Creatine Kinase CK-MB (CK-2) 0.59 Troponin I Impressions: Abdomen Ultrasound 07/29/20 00:00 IMPRESSION: 1. Distended gallbladder with cholelithiasis and wall thickening measuring up to 5 mm suggestive of cholecystitis. However, negative reported sonographic Garcia's sign without pericholecystic fluid. Recommend correlation with patient symptoms and lab values. 2. Questionable areas of comet tail artifact which can be seen with adenomyomatosis. 3. Hepatic steatosis. Abdomen/Pelvis CT 07/29/20 00:00 IMPRESSION: 1. Mild distended gallbladder with questionable wall thickening. No pericholecystic inflammatory change or radiopaque stones. Recommend correlation with patient symptoms. Right upper quadrant ultrasound could be considered for further evaluation. 2. Improvement in previously seen small bowel dilation and wall thickening. 3. No other evidence of acute intra-abdominal/pelvic process. Chest X-Ray 07/29/20 00:52 IMPRESSION: 1. No acute pulmonary process identified. Abdomen MRI 07/30/20 00:00 IMPRESSION: Small distal common bile duct stone or stricture. Assessment and Plan - Diagnosis (1) Cholecystitis Is this a current diagnosis for this admission?: Yes (2) Pancreatitis Qualifiers: Pancreatitis type: biliary Is this a current diagnosis for this admission?: Yes (3) Abdominal pain Qualifiers: Abdominal location: generalized Qualified Code(s): R10.84 - Generalized abdominal pain Is this a current diagnosis for this admission?: Yes (4) LFT elevation Is this a current diagnosis for this admission?: Yes (5) Uncontrolled pain Is this a current diagnosis for this admission?: Yes (6) Constipation Qualifiers: Constipation type: drug induced constipation Qualified Code(s): K59.03 - Drug induced constipation Is this a current diagnosis for this admission?: Yes (7) Hypertensive urgency Is this a current diagnosis for this admission?: Yes - Plan Summary Summary: 50 F who initially presented due to concern for "chest pain." She had normal EKG and negative troponin x2. Labs were otherwise normal. Upon further questioning, she mentioned RUQ and epigastric abdominal pain. Abdominal CT and RUQ US were concerning for possible cholecystitis. Labs on repeat (07/30) notable for elevated LFT and hyperbilirubinemia, as well as lipase. MRCP was performed which showed small, distal CBD stone or stricture. General surgery was consulted and recommended to treat for acute pancreatitis, likely due to cholelithiasis. Will plan for lap anthony likely later this hospitalization. - IVF at 200 ml/hr - IV analgesia - CLD HTN Urgency: elevated BP likely exacerbated by uncontrolled pain - restarted home medications + Norvasc 5 mg daily - Time Time Spent with patient: 35 or more minutes Anticipated Discharge Disposition: Home, Self Care Anticipated Discharge Timeframe: within 72 hours
[2020-07-30] MEDS ORDERED: AMLODIPINE BESYLATE 5 MG TABLET PO SCH (22:00)
[2020-07-30] MEDS: ATORVASTATIN CALCIUM 40 MG TABLET PO SCH (22:23)
[2020-07-30] MEDS: GABAPENTIN 300 MG CAPSULE PO SCH (22:23)
[2020-07-30] MEDS: HYDROXYZINE PAMOATE 25 MG CAPSULE PO SCH (22:26)
[2020-07-30] MEDS: HYDROMORPHONE HCL INJ/PF 2 MG/ML AMPULE IV PRN (22:35)
[2020-07-31] MEDS: NORMAL SALINE 1000 ML 1,000 ML IV PRN ×2 (02:00→15:36)
[2020-07-31 05:15] LABS: HEMATOCRIT 35.5 % (36.0-47.0); HEMOGLOBIN 12.3 g/dL (12.0-15.5); MEAN CORPUSCULAR HEMOGLOBIN 30.4 pg (27.0-33.4); MEAN CORPUSCULAR HGB CONC 34.8 g/dL (32.0-36.0); MEAN CORPUSCULAR VOLUME 87 fl (80-97); PLATELET COUNT 204 10^3/uL (150-450); RED BLOOD COUNT 4.06 10^6/uL (3.72-5.28); RED CELL DISTRIBUTION WIDTH 13.8 % (11.5-14.0); WHITE BLOOD COUNT 4.8 10^3/uL (4.0-10.5)
[2020-07-31] MEDS: GABAPENTIN 300 MG CAPSULE PO SCH ×3 (05:25→21:12)
[2020-07-31] MEDS: HYDROXYZINE PAMOATE 25 MG CAPSULE PO SCH ×4 (05:25→21:12)
[2020-07-31] MEDS: HEPARIN SOD (PORCINE) 5,000 UNIT/ML 1 ML VIAL SUBCUT SCH ×3 (05:25→21:13)
[2020-07-31 05:42] LABS: ALBUMIN 3.6 g/dL (3.5-5.0); ALKALINE PHOSPHATASE 259 U/L (38-126); ANION GAP 5 (5-19); ASPARTATE AMINO TRANSFERASE 277 U/L (14-36); BILIRUBIN,TOTAL 2.9 mg/dL (0.2-1.3); BLOOD UREA NITROGEN 4 mg/dL (7-20); CALCIUM 8.5 mg/dL (8.4-10.2); CARBON DIOXIDE 25 mmol/L (22-30); CHLORIDE 109 mmol/L (98-107); GLUCOSE 117 mg/dL (75-110); POTASSIUM 3.7 mmol/L (3.6-5.0); TOTAL PROTEIN 6.9 g/dL (6.3-8.2)
[2020-07-31] MEDS: SENNOSIDES/DOCUSATE 8.6-50 MG 1 EACH TABLET PO SCH ×2 (09:58→17:40)
[2020-07-31] MEDS: ASPIRIN 81 MG TABLET, CHEWABLE PO SCH (09:59)
[2020-07-31] MEDS: AMLODIPINE BESYLATE 5 MG TABLET PO SCH ×2 (09:59→21:12)
[2020-07-31] MEDS: LOSARTAN POTASSIUM 25 MG TABLET PO SCH ×2 (09:59→21:12)
[2020-07-31] MEDS: FAMOTIDINE 20 MG TABLET PO SCH ×2 (09:59→21:11)
[2020-07-31] MEDS: METOPROLOL TARTRATE 25 MG TABLET PO SCH ×2 (10:00→21:12)
[2020-07-31] MEDS: POLYETHYLENE GLYCOL 3350 POWDER 17 GM/1 PACKET PO SCH ×2 (10:01→17:40)
--- NOTE | 2020-07-31 13:10 | PDOC PROGRESS REPORT ---
Subjective Date:: 07/31/20 Subjective:: Epigastric discomfort with nausea Reason For Visit: CHEST PAIN,HTN Physical Exam Vital Signs: Temp Pulse Resp BP Pulse Ox 97.5 F 74 16 155/87 H 100 07/31/20 07:17 07/31/20 07:17 07/31/20 07:17 07/31/20 07:17 07/31/20 07:17 Intake & Output 07/30/20 07/31/20 08/01/20 06:59 06:59 06:59 Intake Total 240 2580 360 Balance 240 2580 360 Weight 66.5 kg 66.2 kg General appearance: PRESENT: mild distress, obese Respiratory exam: PRESENT: clear to auscultation opal Cardiovascular exam: PRESENT: RRR GI/Abdominal exam: PRESENT: hypoactive bowel sounds, soft, tenderness - In the epigastrium Results Laboratory Results: 07/31/20 04:47 07/31/20 04:47 07/31/20 07/31/20 04:47 04:47 WBC 4.8 RBC 4.06 Hgb 12.3 Hct 35.5 L MCV 87 MCH 30.4 MCHC 34.8 RDW 13.8 Plt Count 204 Sodium 138.5 Potassium 3.7 Chloride 109 H Carbon Dioxide 25 Anion Gap 5 BUN 4 L Creatinine 0.33 L Est GFR ( Amer) > 60 Glucose 117 H Calcium 8.5 Magnesium 2.0 Total Bilirubin 2.9 H AST 277 H Alkaline Phosphatase 259 H Total Protein 6.9 Albumin 3.6 Lipase 629.4 H 07/29/20 07/29/20 07/29/20 00:49 00:49 03:49 Creatine Kinase 45 CK-MB (CK-2) 0.86 Troponin I < 0.012 < 0.012 07/29/20 10:02 Creatine Kinase CK-MB (CK-2) 0.59 Troponin I Impressions: Abdomen Ultrasound 07/29/20 00:00 IMPRESSION: 1. Distended gallbladder with cholelithiasis and wall thickening measuring up to 5 mm suggestive of cholecystitis. However, negative reported sonographic Garcia's sign without pericholecystic fluid. Recommend correlation with patient symptoms and lab values. 2. Questionable areas of comet tail artifact which can be seen with adenomyomat osis. 3. Hepatic steatosis. Abdomen/Pelvis CT 07/29/20 00:00 IMPRESSION: 1. Mild distended gallbladder with questionable wall thickening. No pericholecystic inflammatory change or radiopaque stones. Recommend correlation with patient symptoms. Right upper quadrant ultrasound could be considered for further evaluation. 2. Improvement in previously seen small bowel dilation and wall thickening. 3. No other evidence of acute intra-abdominal/pelvic process. Chest X-Ray 07/29/20 00:52 IMPRESSION: 1. No acute pulmonary process identified. Abdomen MRI 07/30/20 00:00 IMPRESSION: Small distal common bile duct stone or stricture. Assessment & Plan - Diagnosis (1) Cholelithiasis with choledocholithiasis Is this a current diagnosis for this admission?: Yes (2) Pancreatitis, gallstone Is this a current diagnosis for this admission?: Yes (3) Cholelithiasis and cholecystitis with obstruction Qualifiers: Cholelithiasis location: bile duct Is this a current diagnosis for this admission?: Yes - Time Anticipated Discharge Disposition: Home, Self Care Anticipated Discharge Timeframe: when ready - Plan Summary Plan Summary: Assessment: Cholelithiasis with cholecystitis and choledocholithiasis ERCP significant for distal common bile duct stone versus stricture Gallstone pancreatitis Panelevation of liver enzymes and bilirubin (2.9), now improving Elevated lipase now improving (629 today), down from 8300 yesterday Physical exam shows a slightly tender epigastrium Patient discomfort improved, still nauseated Plan: Continue clear liquids as tolerated Continue IV fluids Monitor blood work Possible ERCP next week when the GI becomes available at this institution for such a procedure
--- NOTE | 2020-07-31 20:09 | PDOC PROGRESS REPORT ---
Subjective Date:: 07/31/20 Subjective:: Abdominal pain much improved. She denies N/V. Had a BM. She is requesting to advance diet. Reason For Visit: ACUTE PANCREATITIS, ACUTE CHOLECYSTITIS Physical Exam Vital Signs: Temp Pulse Resp BP Pulse Ox 97.9 F 74 20 128/96 H 100 07/31/20 15:35 07/31/20 18:00 07/31/20 15:35 07/31/20 15:35 07/31/20 15:35 Intake & Output 07/30/20 07/31/20 08/01/20 06:59 06:59 06:59 Intake Total 240 2580 2080 Balance 240 2580 2080 Weight 66.5 kg 66.2 kg General appearance: PRESENT: no acute distress, cooperative Eye exam: ABSENT: scleral icterus Mouth exam: PRESENT: moist Throat exam: ABSENT: post pharyngeal erythema Neck exam: ABSENT: JVD Respiratory exam: PRESENT: clear to auscultation opal Cardiovascular exam: PRESENT: RRR GI/Abdominal exam: PRESENT: normal bowel sounds, soft. ABSENT: distended, firm, guarding, Garcia's sign, rebound, rigid, tenderness Extremities exam: ABSENT: pedal edema Musculoskeletal exam: PRESENT: ambulatory Neurological exam: PRESENT: alert, awake, oriented to person, oriented to place, oriented to time, oriented to situation Psychiatric exam: PRESENT: appropriate affect Skin exam: ABSENT: jaundice Results Laboratory Results: 07/31/20 04:47 07/31/20 04:47 07/31/20 07/31/20 04:47 04:47 WBC 4.8 RBC 4.06 Hgb 12.3 Hct 35.5 L MCV 87 MCH 30.4 MCHC 34.8 RDW 13.8 Plt Count 204 Sodium 138.5 Potassium 3.7 Chloride 109 H Carbon Dioxide 25 Anion Gap 5 BUN 4 L Creatinine 0.33 L Est GFR ( Amer) > 60 Glucose 117 H Calcium 8.5 Magnesium 2.0 Total Bilirubin 2.9 H AST 277 H Alkaline Phosphatase 259 H Total Protein 6.9 Albumin 3.6 Lipase 629.4 H 07/29/20 07/29/20 07/29/20 00:49 00:49 03:49 Creatine Kinase 45 CK-MB (CK-2) 0.86 Troponin I < 0.012 < 0.012 07/29/20 10:02 Creatine Kinase CK-MB (CK-2) 0.59 Troponin I Impressions: Abdomen Ultrasound 07/29/20 00:00 IMPRESSION: 1. Distended gallbladder with cholelithiasis and wall thickening measuring up to 5 mm suggestive of cholecystitis. However, negative reported sonographic Garcia's sign without pericholecystic fluid. Recommend correlation with patient symptoms and lab values. 2. Questionable areas of comet tail artifact which can be seen with adenomyomatosis. 3. Hepatic steatosis. Abdomen/Pelvis CT 07/29/20 00:00 IMPRESSION: 1. Mild distended gallbladder with questionable wall thickening. No pericholecystic inflammatory change or radiopaque stones. Recommend correlation with patient symptoms. Right upper quadrant ultrasound could be considered for further evaluation. 2. Improvement in previously seen small bowel dilation and wall thickening. 3. No other evidence of acute intra-abdominal/pelvic process. Chest X-Ray 07/29/20 00:52 IMPRESSION: 1. No acute pulmonary process identified. Abdomen MRI 07/30/20 00:00 IMPRESSION: Small distal common bile duct stone or stricture. Assessment and Plan - Diagnosis (1) Cholecystitis Is this a current diagnosis for this admission?: Yes (2) Pancreatitis Qualifiers: Pancreatitis type: biliary Is this a current diagnosis for this admission?: Yes (3) Abdominal pain Qualifiers: Abdominal location: generalized Qualified Code(s): R10.84 - Generalized abdominal pain Is this a current diagnosis for this admission?: Yes (4) LFT elevation Is this a current diagnosis for this admission?: Yes (5) Uncontrolled pain Is this a current diagnosis for this admission?: Yes (6) Constipation Qualifiers: Constipation type: drug induced constipation Qualified Code(s): K59.03 - Drug induced constipation Is this a current diagnosis for this admission?: Yes (7) Hypertensive urgency Is this a current diagnosis for this admission?: Yes - Plan Summary Summary: 50 F who initially presented due to concern for "chest pain." She had normal EKG and negative troponin x2. Labs were otherwise normal. Upon further questioning, she mentioned RUQ and epigastric abdominal pain. Abdominal CT and RUQ US were concerning for possible cholecystitis. Labs on repeat (07/30) notable for elevated LFT and hyperbilirubinemia, as well as lipase. MRCP was performed which showed small, distal CBD stone or stricture. General surgery was consulted and recommended to treat for acute pancreatitis, likely due to cholelithiasis. Today, 07/31, labs and her abdominal pain are improving. Will plan for lap anthony likely later this hospitalization. - surgery consulted - continue IVF - IV analgesia - CLD HTN Urgency: resolved, elevated BP was likely exacerbated by uncontrolled pain. BP now controlled on current regimen. DVT ppx: heparin - Time Time Spent with patient: 25-34 minutes Anticipated Discharge Disposition: Home, Self Care Anticipated Discharge Timeframe: within 72 hours
[2020-07-31] MEDS: ATORVASTATIN CALCIUM 40 MG TABLET PO SCH (21:13)
[2020-08-01] MEDS: HEPARIN SOD (PORCINE) 5,000 UNIT/ML 1 ML VIAL SUBCUT SCH ×3 (05:05→22:50)
[2020-08-01] MEDS: OXYCODONE HCL IR 5 MG TABLET PO PRN ×2 (05:05→18:06)
[2020-08-01] MEDS: HYDROXYZINE PAMOATE 25 MG CAPSULE PO SCH ×3 (05:05→22:50)
[2020-08-01] MEDS: GABAPENTIN 300 MG CAPSULE PO SCH ×3 (05:05→22:45)
[2020-08-01 05:26] LABS: HEMOGLOBIN 12.8 g/dL (12.0-15.5); MEAN CORPUSCULAR HEMOGLOBIN 30.3 pg (27.0-33.4); MEAN CORPUSCULAR HGB CONC 34.5 g/dL (32.0-36.0); MEAN CORPUSCULAR VOLUME 88 fl (80-97); PLATELET COUNT 195 10^3/uL (150-450); RED BLOOD COUNT 4.21 10^6/uL (3.72-5.28); RED CELL DISTRIBUTION WIDTH 13.7 % (11.5-14.0); WHITE BLOOD COUNT 4.8 10^3/uL (4.0-10.5)
[2020-08-01 05:55] LABS: ALBUMIN 3.7 g/dL (3.5-5.0); ALKALINE PHOSPHATASE 259 U/L (38-126); ANION GAP 8 (5-19); ASPARTATE AMINO TRANSFERASE 110 U/L (14-36); BILIRUBIN,DIRECT 0.4 mg/dL (0.0-0.4); BILIRUBIN,TOTAL 1.3 mg/dL (0.2-1.3); BLOOD UREA NITROGEN 6 mg/dL (7-20); CALCIUM 9.3 mg/dL (8.4-10.2); CARBON DIOXIDE 21 mmol/L (22-30); CHLORIDE 110 mmol/L (98-107); GLUCOSE 102 mg/dL (75-110); POTASSIUM 3.3 mmol/L (3.6-5.0)
[2020-08-01] MEDS: AMLODIPINE BESYLATE 5 MG TABLET PO SCH ×2 (09:15→22:45)
[2020-08-01] MEDS: LOSARTAN POTASSIUM 25 MG TABLET PO SCH ×2 (09:15→22:45)
[2020-08-01] MEDS ORDERED: POTASSIUM CHLORIDE 10 MEQ TABLET.ER PO ONE (09:15)
[2020-08-01] MEDS: METOPROLOL TARTRATE 25 MG TABLET PO SCH ×2 (09:15→22:44)
[2020-08-01] MEDS: NORMAL SALINE 1000 ML 1,000 ML IV PRN ×2 (09:15→17:19)
[2020-08-01] MEDS: ASPIRIN 81 MG TABLET, CHEWABLE PO SCH (09:21)
[2020-08-01] MEDS: SENNOSIDES/DOCUSATE 8.6-50 MG 1 EACH TABLET PO SCH ×2 (09:21→17:17)
[2020-08-01] MEDS: FAMOTIDINE 20 MG TABLET PO SCH ×2 (09:21→22:45)
[2020-08-01] MEDS: POLYETHYLENE GLYCOL 3350 POWDER 17 GM/1 PACKET PO SCH ×2 (09:21→17:17)
[2020-08-01] MEDS ORDERED: NEOSTIGMINE METHYLSULFATE 10 MG/10 ML VIAL ONE (10:22)
[2020-08-01] MEDS ORDERED: SUCCINYLCHOLINE CHLORIDE INJ 200 MG/10 ML VIAL ONE (10:22)
[2020-08-01] MEDS ORDERED: GLYCOPYRROLATE 1 MG/5 ML VIAL ONE (10:22)
--- NOTE | 2020-08-01 10:24 | PDOC PROGRESS REPORT ---
Subjective Date:: 08/01/20 Reason For Visit: ACUTE PANCREATITIS, ACUTE CHOLECYSTITIS Patient feels better, no complaints. Rapid Covid test this morning negative. Tolerated clear liquid diet. Physical Exam Vital Signs: Temp Pulse Resp BP Pulse Ox 97.7 F 65 18 149/65 H 100 08/01/20 09:10 08/01/20 07:22 08/01/20 07:22 08/01/20 07:22 08/01/20 07:22 Intake & Output 07/31/20 08/01/20 08/02/20 06:59 06:59 06:59 Intake Total 2580 2800 1000 Balance 2580 2800 1000 Weight 66.2 kg 66.5 kg General appearance: PRESENT: no acute distress GI/Abdominal exam: PRESENT: other - Abdomen soft, minimally tender in the epigastric area. No peritoneal signs no rigidity. Multiple scars. Results Laboratory Results: 08/01/20 04:57 08/01/20 04:57 08/01/20 08/01/20 04:57 04:57 WBC 4.8 RBC 4.21 Hgb 12.8 Hct 37.0 MCV 88 MCH 30.3 MCHC 34.5 RDW 13.7 Plt Count 195 Sodium 138.8 Potassium 3.3 L Chloride 110 H Carbon Dioxide 21 L Anion Gap 8 BUN 6 L Creatinine 0.37 L Est GFR ( Amer) > 60 Glucose 102 Calcium 9.3 Magnesium 1.8 Total Bilirubin 1.3 AST 110 H Alkaline Phosphatase 259 H Total Protein 7.0 Albumin 3.7 Lipase 180.9 07/29/20 07/29/20 07/29/20 00:49 00:49 03:49 Creatine Kinase 45 CK-MB (CK-2) 0.86 Troponin I < 0.012 < 0.012 07/29/20 10:02 Creatine Kinase CK-MB (CK-2) 0.59 Troponin I Impressions: Abdomen Ultrasound 07/29/20 00:00 IMPRESSION: 1. Distended gallbladder with cholelithiasis and wall thickening measuring up to 5 mm suggestive of cholecystitis. However, negative reported sonographic Garcia's sign without pericholecystic fluid. Recommend correlation with patient symptoms and lab values. 2. Questionable areas of comet tail artifact which can be seen with adenomyomatosis. 3. Hepatic steatosis. Abdomen/Pelvis CT 07/29/20 00:00 IMPRESSION: 1. Mild distended gallbladder with questionable wall thickening. No pericholecystic inflammatory change or radiopaque stones. Recommend correlation with patient symptoms. Right upper quadrant ultrasound could be considered for further evaluation. 2. Improvement in previously seen small bowel dilation and wall thickening. 3. No other evidence of acute intra-abdominal/pelvic process. Chest X-Ray 07/29/20 00:52 IMPRESSION: 1. No acute pulmonary process identified. Abdomen MRI 07/30/20 00:00 IMPRESSION: Small distal common bile duct stone or stricture. Assessment & Plan - Diagnosis (1) Cholecystitis Is this a current diagnosis for this admission?: Yes Plan: Impression: Clinically improved; no peritoneal signs; total bilirubin down to 1. 3. CT scan and MRCP suggestive of choledocholithiasis. Recommendations: 1. Considering patient's clinical improvement, unavailability of ERCP today, will proceed with laparoscopic cholecystectomy with intraoperative cholangiography. The mechanics of the operation, as well as risk benefits and a lternatives were explained to the patient including bleeding, infection, bile duct injury, and retained common bile duct stones. Patient expresses understanding and agrees to proceed. 2. If patient has retained common duct stone, then arrangements will need to be made for lap anthony ERCP. Patient also understands this. (2) Diabetes Qualifiers: Diabetes mellitus type: type 2 (4) Pancreatitis Qualifiers: Pancreatitis type: biliary - Time Anticipated Discharge Disposition: Home, Self Care Anticipated Discharge Timeframe: within 48 hours
[2020-08-01] MEDS ORDERED: DEXAMETHASONE SOD PHOSPHATE INJ 4 MG/1 ML VIAL ONE (13:14)
[2020-08-01] MEDS ORDERED: PROPOFOL INJ 200 MG/20 ML VIAL IV ONE (13:14)
[2020-08-01] MEDS ORDERED: LIDOCAINE 2% INJ-PF (20 MG/ML) 10 ML AMPUL ONE (13:14)
[2020-08-01] MEDS ORDERED: FENTANYL CITRATE INJ/PF 100 MCG/2 ML AMPUL ONE ×2 (13:14→15:54)
[2020-08-01] MEDS ORDERED: ONDANSETRON HCL INJ/PF 4 MG/2 ML SDV ONE (13:14)
[2020-08-01] MEDS ORDERED: HYDROMORPHONE HCL INJ/PF 2 MG/ML AMPULE ONE (13:14)
[2020-08-01] MEDS ORDERED: DEXMEDETOMIDINE INJ 80 MCG/20 ML VIAL IV ONE (13:16)
[2020-08-01] MEDS ORDERED: MIDAZOLAM 2 MG/2 ML INJ ONE (13:18)
[2020-08-01] MEDS ORDERED: BUPIVACAINE HCL 0.25 % INJ/PF (2.5 MG/1 ML) 30 ML VIAL ONE (13:28)
[2020-08-01] MEDS ORDERED: CEFAZOLIN 1 GM/D5W RTU 1 GM/50 ML RTUPB IV ONE (13:31)
[2020-08-01] MEDS ORDERED: MORPHINE SULFATE 10 MG/ML INJ IV PRN (14:04)
[2020-08-01] MEDS ORDERED: PROMETHAZINE HCL INJ 25 MG/1 ML VIAL IV PRN (14:04)
[2020-08-01] MEDS ORDERED: DIPHENHYDRAMINE HCL 50 MG/ML VIAL IV PRN (14:04)
[2020-08-01] MEDS ORDERED: MEPERIDINE HCL/PF INJ 25 MG/1 ML DISP.SYRIN IV PRN (14:04)
[2020-08-01] MEDS ORDERED: FENTANYL CITRATE INJ/PF 100 MCG/2 ML AMPUL IV PRN ×2 (14:04)
[2020-08-01] MEDS ORDERED: ONDANSETRON HCL INJ/PF 4 MG/2 ML SDV IV PRN (14:04)
--- NOTE | 2020-08-01 15:32 | Operative Report ---
Operative Report DATE OF SURGERY: 08/01/20 PREOPERATIVE DIAGNOSIS: 1. Acute cholecystitis with cholelithiasis. 2. Galls tone pancreatitis. 3. Elevated liver function studies. 4. Probable retained common bile duct stone POSTOPERATIVE DIAGNOSIS: Same OPERATION: 1. Laparoscopic cholecystectomy with drain placement. 2. Intraoperative cholangiography. 3. Irritation of intraoperative cholangiography SURGEON: MELISSA GRADY ANESTHESIA: GA TISSUE REMOVED OR ALTERED: 1 gallbladder with stones COMPLICATIONS: None ESTIMATED BLOOD LOSS: 25 cc INTRAOPERATIVE FINDINGS: See below PROCEDURE: The patient was taken the preop holding area to the main operating room where induced. Arms were abducted, abdomen was exposed, prepped and draped in sterile fashion with chlorhexidine. Her mentation was set up for laparoscopic cholecystectomy. Surgical plan and surgical timeout were conducted. Markings were made on the skin for 4 port laparoscopy. All 4 sites, subxiphoid, and subcostal positions were anesthetized with 1% plain lidocaine. The patient had previous surgery resulting in scars throughout the abdominal wall including the infraumbilical area. For that reason we approached the right upper quadrant for entry in the peritoneal cavity. A subcostal incision was made with a #15 blade, Veress needle inserted in the peritoneal cavity, pneumoperitoneum was established. Veress needle was removed, and a 5 mm ports inserted. Visualization the peritoneal cavity revealed adhesions above the umbilicus adjacent to the falciform ligament, with a loop of bowel attached. However the peritoneum beneath the umbilicus was free of adhesions. Therefore a 5 mm port was inserted just above the umbilicus. 2 additional ports were placed 1 subxiphoid and a fourth port in the far right subcostal position. Inspection of peritoneal cavity revealed no evidence of injury to any other s tructures. The gallbladder was slightly distended and edematous and enlarged. It was grasped with the graspers from the fundus, reflected over the right lobe of the liver, and a second grasper used to hold the infundibulum. She had a very thick fatty layer of tissue over the infundibulum and this was dissected free in a methodical fashion with cautery and suction dissection. Eventually we had the neck of the gallbladder dissected out. The cystic artery was encountered clipped once proximally and controlled. We now brought onto the field the disposable laparoscopic cholangiography kit and radiology was present in the room for imaging. The cystic duct was photographed, clipped once distally, then open with laparoscopic scissors. A small marlon was made in the skin in the medial subcostal area, and the disposable laparoscopic cholangiogram catheter was threaded under direct visualization to the anterior abdominal wall. The stylette was removed, and irrigation and dye syringes attached to the way stopcock. We now threaded the cholangiogram catheter into the cystic duct stump approximately 1 cm. This required quite a bit of manipulating. The catheter was secured to the stump with a single clip. We removed laparoscopic instruments and shot a series of cholangiograms. This revealed complete opacification of the common hepatic duct, and the common bile duct, without leakage. In the distal common bile duct there was at least 1 filling defect consistent common duct stone. There was a trickle of contrast into the duodenum. This was interpreted as abnormal cholangiogram to the distal common duct filling defect. Return the patient, remove the cholangiogram clip, catheter, and clipped the cystic duct twice proximally divided with scissors. The cystic artery stump was secured with a second clip. Of note wall manipulating the subxiphoid port, the medial aspect of the right lobe of the liver at the falciform ligament tore for at least 2 cm requiring control with electrocautery and Surgicel. The gallbladder is removed from the inferior surface of the liver bed using hook cautery dissection. It came off the liver uneventfully, was brought out of the patient through the supraumbilical port site after stretching the fascia. There was spillage of handful of small stones were removed with graspers We returned to inspect the liver bed and there was no evidence of mechanical bleeding. A large Clarence drain was placed to the right subcostal port site, trimmed the appropriate length, tucked underneath the right lobe of the liver, and secured the skin with 2-0 Prolene suture. We reinspected our cystic duct and cystic artery stumps and the clips were secure. Sponge and counts are correct. All ports removed under direct visualization, pneumoperitoneum evacuated wounds closed with 0 Vicryl 3-0 Vicryl benzoin and Steri-Strips. Patient tolerated procedure well, extubated, taken to the recovery room in stable condition. Plan: 1. We will start clear liquids 2. We will attempt to make transfer arrangements for patient to undergo ERCP at a receiving institution if available. 3. Discussed the above with Dr. Quick, hospitalist.
[2020-08-01] MEDS: FENTANYL CITRATE INJ/PF 100 MCG/2 ML AMPUL IV PRN ×2 (15:53→16:07)
--- NOTE | 2020-08-01 16:02 | RADIOLOGY REPORT (SQ) ---
EXAM DESCRIPTION: CHOLANGIOGRAM OPERATIVE IMAGES COMPLETED DATE/TIME: 08/01/2020 3:25 pm REASON FOR STUDY: CHOLANGIOGRAM IN OR COMPARISON: None. FLUOROSCOPY TIME: 0.6 minute 11 images saved to PACS. TECHNIQUE: 11 spot fluoroscopic images were obtained from an intraoperative cholangiogram. LIMITATIONS: None. FINDINGS: There is opacification of the bile ducts, cystic duct remnants and second portion of the d uodenum without evidence of fixed filling defect or significant extravasation. IMPRESSION: INTRAOPERATIVE CHOLANGIOGRAM. COMMENT: Quality ID [id number]: Final reports for procedures using fluoroscopy that document radiation exp osure indices, or exposure time and number of fluorographic images (if radiation exposure indices are not available) TECHNICAL DOCUMENTATION: JOB ID: [id number] 2010 [employer]- All Rights Reserved Reading location - IP/workstation name: [email or web address]
[2020-08-01] MEDS: DOCUSATE SODIUM 100 MG CAPSULE PO SCH (17:17)
--- NOTE | 2020-08-01 18:49 | PDOC PROGRESS REPORT ---
Subjective Date:: 08/01/20 Subjective:: ANHO. This morning, she was feeling quite well and pain was well controlled. Reason For Visit: ACUTE PANCREATITIS, ACUTE CHOLECYSTITIS Physical Exam Vital Signs: Temp Pulse Resp BP Pulse Ox 97.6 F 72 18 147/65 H 96 08/01/20 17:23 08/01/20 17:23 08/01/20 17:23 08/01/20 17:23 08/01/20 17:23 Intake & Output 07/31/20 08/01/20 08/02/20 06:59 06:59 06:59 Intake Total 2580 2800 2680 Balance 2580 2800 2680 Weight 66.2 kg 66.5 kg General appearance: PRESENT: no acute distress, cooperative Eye exam: ABSENT: scleral icterus Mouth exam: PRESENT: moist Throat exam: ABSENT: post pharyngeal erythema Neck exam: ABSENT: JVD Respiratory exam: PRESENT: clear to auscultation opal Cardiovascular exam: PRESENT: RRR GI/Abdominal exam: PRESENT: normal bowel sounds, soft. ABSENT: tenderness Gentrourinary exam: ABSENT: indwelling catheter Neurological exam: PRESENT: alert, awake, oriented to person, oriented to place, oriented to time, oriented to situation Psychiatric exam: PRESENT: appropriate affect Skin exam: ABSENT: jaundice Results Laboratory Results: 08/01/20 04:57 08/01/20 04:57 08/01/20 08/01/20 04:57 04:57 WBC 4.8 RBC 4.21 Hgb 12.8 Hct 37.0 MCV 88 MCH 30.3 MCHC 34.5 RDW 13.7 Plt Count 195 Sodium 138.8 Potassium 3.3 L Chloride 110 H Carbon Dioxide 21 L Anion Gap 8 BUN 6 L Creatinine 0.37 L Est GFR ( Amer) > 60 Glucose 102 Calcium 9.3 Magnesium 1.8 Total Bilirubin 1.3 AST 110 H Alkaline Phosphatase 259 H Total Protein 7.0 Albumin 3.7 Lipase 180.9 07/29/20 07/29/20 07/29/20 00:49 00:49 03:49 Creatine Kinase 45 CK-MB (CK-2) 0.86 Troponin I < 0.012 < 0.012 07/29/20 10:02 Creatine Kinase CK-MB (CK-2) 0.59 Troponin I Impressions: Abdomen Ultrasound 07/29/20 00:00 IMPRESSION: 1. Distended gallbladder with cholelithiasis and wall thickening measuring up to 5 mm suggestive of cholecystitis. However, negative reported sonographic Garcia's sign without pericholecystic fluid. Recommend correlation with patient symptoms and lab values. 2. Questionable areas of comet tail artifact which can be seen with adenomyomatosis. 3. Hepatic steatosis. Abdomen/Pelvis CT 07/29/20 00:00 IMPRESSION: 1. Mild distended gallbladder with questionable wall thickening. No pericholecystic inflammatory change or radiopaque stones. Recommend correlation with patient symptoms. Right upper quadrant ultrasound could be considered for further evaluation. 2. Improvement in previously seen small bowel dilation and wall thickening. 3. No other evidence of acute intra-abdominal/pelvic process. Chest X-Ray 07/29/20 00:52 IMPRESSION: 1. No acute pulmonary process identified. Abdomen MRI 07/30/20 00:00 IMPRESSION: Small distal common bile duct stone or stricture. Cholangiogram 08/01/20 00:00 IMPRESSION: INTRAOPERATIVE CHOLANGIOGRAM. Assessment and Plan - Diagnosis (1) Cholecystitis Is this a current diagnosis for this admission?: Yes (2) Pancreatitis Qualifiers: Pancreatitis type: biliary Is this a current diagnosis for this admission?: Yes (3) Abdominal pain Qualifiers: Abdominal location: generalized Qualified Code(s): R10.84 - Generalized abdominal pain Is this a current diagnosis for this admission?: Yes (4) LFT elevation Is this a current diagnosis for this admission?: Yes (5) Uncontrolled pain Is this a current diagnosis for this admission?: Yes (6) Constipation Qualifiers: Constipation type: drug induced constipation Qualified Code(s): K59.03 - Drug induced constipation Is this a current diagnosis for this admission?: Yes (7) Hypertensive urgency Is this a current diagnosis for this admission?: Yes (8) Common bile duct (CBD) obstruction Is this a current diagnosis for this admission?: Yes - Plan Summary Summary: 50 overweight (BMI 29) F with HTN and HLD who presented with RUQ and epigastric abdominal pain associated with nausea and vomiting. Acute Gallstone Pancreatitis Retained CBD Stone Abdominal CT and RUQ US were concerning for cholecystitis and pancreatitis. Labs (07/30) notable for elevated LFT and hyperbilirubinemia, as well as lipase. MRCP was performed which showed small, distal CBD stone or stricture. General surgery was consulted and recommended to treat for acute gallstone pancreatitis. Starting 07/31, her labs and her abdominal pain improved dramatically. On 08/01, she underwent laparoscopic cholecystectomy with drain placement. and intraoperative cholangiography which showed a retained CBD stone. Surgery has arranged a transfer to [facility] for ERCP tomorrow morning, with plan for patient to return to [facility] post-procedure. For now, continue IVF and IV analgesia. NPO past MN. HTN Urgency Essential HTN BP now well-controlled on current regimen. - Time Time Spent with patient: 35 or more minutes Anticipated Discharge Disposition: Home, Self Care Anticipated Discharge Timeframe: within 48 hours
[2020-08-01] MEDS: HYDROMORPHONE HCL INJ/PF 2 MG/ML AMPULE IV PRN ×2 (18:58→22:50)
[2020-08-01] MEDS: ATORVASTATIN CALCIUM 40 MG TABLET PO SCH (22:45)
[2020-08-02] MEDS: HYDROMORPHONE HCL INJ/PF 2 MG/ML AMPULE IV PRN (01:00)
[2020-08-02] MEDS: HEPARIN SOD (PORCINE) 5,000 UNIT/ML 1 ML VIAL SUBCUT SCH (05:45)
[2020-08-02] MEDS: HYDROXYZINE PAMOATE 25 MG CAPSULE PO SCH (05:46)
[2020-08-02] MEDS: GABAPENTIN 300 MG CAPSULE PO SCH (05:46)
[2020-08-02 07:24] LABS: HEMATOCRIT 35.1 % (36.0-47.0); MEAN CORPUSCULAR HEMOGLOBIN 29.6 pg (27.0-33.4); MEAN CORPUSCULAR HGB CONC 34.2 g/dL (32.0-36.0); MEAN CORPUSCULAR VOLUME 87 fl (80-97); PLATELET COUNT 175 10^3/uL (150-450); RED BLOOD COUNT 4.05 10^6/uL (3.72-5.28); RED CELL DISTRIBUTION WIDTH 13.8 % (11.5-14.0); WHITE BLOOD COUNT 6.1 10^3/uL (4.0-10.5)
[2020-08-02 07:36] LABS: ALBUMIN 3.3 g/dL (3.5-5.0); ALKALINE PHOSPHATASE 182 U/L (38-126); ASPARTATE AMINO TRANSFERASE 299 U/L (14-36); BILIRUBIN,DIRECT 0.4 mg/dL (0.0-0.4); BILIRUBIN,TOTAL 0.9 mg/dL (0.2-1.3); BLOOD UREA NITROGEN 4 mg/dL (7-20); CALCIUM 8.1 mg/dL (8.4-10.2); CARBON DIOXIDE 25 mmol/L (22-30); CHLORIDE 110 mmol/L (98-107); GLUCOSE 102 mg/dL (75-110); POTASSIUM 3.1 mmol/L (3.6-5.0); TOTAL PROTEIN 6.5 g/dL (6.3-8.2)
[2020-08-02 07:39] LABS: ANION GAP 4 (5-19)
[2020-08-02] MEDS ORDERED: POTASSI CL 20 MEQ/50 ML RIDER 20 MEQ/50 ML RTUPB IV SCH (08:00)
[2020-08-02] MEDS ORDERED: MAGNESIUM SULFATE/D5W 1 GM/100 ML RTUPB IV SCH (08:00)
[2020-08-02 08:23] VITALS: BP 131/62
[2020-08-02] MEDS: OXYCODONE HCL IR 5 MG TABLET PO PRN (08:31)
[2020-08-02] MEDS ORDERED: MAGNESIUM OXIDE 400 MG TABLET PO ONE (09:00)
[2020-08-02] MEDS ORDERED: POTASSIUM CHLORIDE 10 MEQ TABLET.ER PO ONE (09:00)
[2020-08-02] MEDS: DOCUSATE SODIUM 100 MG CAPSULE PO SCH (10:23)
[2020-08-02] MEDS: METOPROLOL TARTRATE 25 MG TABLET PO SCH (10:23)
[2020-08-02] MEDS: POLYETHYLENE GLYCOL 3350 POWDER 17 GM/1 PACKET PO SCH (10:23)
[2020-08-02] MEDS: AMLODIPINE BESYLATE 5 MG TABLET PO SCH (10:23)
[2020-08-02] MEDS: LOSARTAN POTASSIUM 25 MG TABLET PO SCH (10:23)
[2020-08-02] MEDS: ASPIRIN 81 MG TABLET, CHEWABLE PO SCH (10:23)
[2020-08-02] MEDS: FAMOTIDINE 20 MG TABLET PO SCH (10:23)
[2020-08-02] MEDS: SENNOSIDES/DOCUSATE 8.6-50 MG 1 EACH TABLET PO SCH (10:24)
--- NOTE | 2020-08-02 16:03 | PDOC TRANSFER SUMMARY ---
General Admission Date/PCP: 07/29/20 13:34 SONJA AMARO MD - Transfer Diagnosis (1) Cholecystitis Is this a current diagnosis for this admission?: Yes (2) Pancreatitis Is this a current diagnosis for this admission?: Yes (3) Abdominal pain Is this a current diagnosis for this admission?: Yes (4) LFT elevation Is this a current diagnosis for this admission?: Yes (5) Uncontrolled pain Is this a current diagnosis for this admission?: Yes (6) Constipation Is this a current diagnosis for this admission?: Yes (7) Hypertensive urgency Is this a current diagnosis for this admission?: Yes (8) Common bile duct (CBD) obstruction Is this a current diagnosis for this admission?: Yes - Transfer Medications Home Medications: Gabapentin [Neurontin 300 mg Capsule] 300 mg PO Q8 07/29/20 Hydroxyzine Pamoate 25 mg PO Q8 07/29/20 Losartan Potassium [Cozaar 50 mg Tablet] 50 mg PO DAILY 07/29/20 Metformin HCl 1 tab PO BID 07/29/20 Morphine Sulfate [Morphine Ir 15 Mg Tablet] 15 mg PO Q4H MDD 3 TABS/24H 07/29/20 Naloxegol Oxalate [Movantik] 25 mg PO QAM 07/29/20 Ondansetron [Zofran Odt 4 mg Tablet] 4 mg PO DAILY 07/29/20 Tizanidine HCl [Zanaflex 4 Mg Tablet] 4 mg PO HSP PRN 07/29/20 - Allergies Allergies/Adverse Reactions: doxycycline [Doxycycline] Allergy (Severe, Verified 09/14/17 19:41) Tachycardia latex [Latex] Allergy (Severe, Verified 09/14/17 19:41) rash Hospital Course Hospital Course: Mrs. Hoover is a 50 year old overweight (BMI 29) F with HTN and HLD who presented with RUQ and epigastric abdominal pain associated with nausea and vomiting. Abdominal CT and RUQ US were concerning for cholecystitis and pancreat itis. Labs (07/30) notable for elevated LFT and hyperbilirubinemia, as well as lipase. MRCP was performed which showed small, distal CBD stone or stricture. General surgery was consulted and recommended to treat for acute gallstone pancreatitis. Starting 07/31, her labs and her abdominal pain improved dramatically. On 08/01, she underwent laparoscopic cholecystectomy with drain placement and intraoperative cholangiography which showed a retained CBD stone. Surgery arranged a transfer to [facility] for ERCP on 08/02/2020 and patient was transferred in stable condition for ongoing management and care. Physical Exam Vital Signs: Temp Pulse Resp BP Pulse Ox 97.6 F 55 L 16 131/62 H 100 08/02/20 07:32 08/02/20 07:32 08/02/20 07:32 08/02/20 07:32 08/02/20 07:32 Intake & Output 08/01/20 08/02/20 08/03/20 06:59 06:59 06:59 Intake Total 2800 3140 Output Total 1630 40 Balance 2800 1510 -40 Weight 66.5 kg 66.8 kg General appearance: PRESENT: no acute distress, cooperative Head exam: PRESENT: atraumatic Eye exam: ABSENT: scleral icterus Mouth exam: PRESENT: moist Throat exam: ABSENT: post pharyngeal erythema Neck exam: ABSENT: JVD Respiratory exam: PRESENT: clear to auscultation opal, unlabored Cardiovascular exam: PRESENT: RRR GI/Abdominal exam: PRESENT: normal bowel sounds, soft. ABSENT: firm, guarding, Garcia's sign, rebound, rigid, tenderness Extremities exam: ABSENT: pedal edema Musculoskeletal exam: PRESENT: ambulatory Neurological exam: PRESENT: alert, awake, oriented to person, oriented to place, oriented to time, oriented to situation Psychiatric exam: PRESENT: appropriate affect Skin exam: ABSENT: jaundice, rash Results Laboratory Results: 08/02/20 07:03 08/02/20 07:03 08/02/20 08/02/20 07:03 07:03 WBC 6.1 RBC 4.05 Hgb 12.0 Hct 35.1 L MCV 87 MCH 29.6 MCHC 34.2 RDW 13.8 Plt Count 175 Sodium 138.6 Potassium 3.1 L Chloride 110 H Carbon Dioxide 25 Anion Gap 4 L BUN 4 L Creatinine 0.35 L Est GFR ( Amer) > 60 Glucose 102 Calcium 8.1 L Magnesium 1.5 L Total Bilirubin 0.9 AST 299 H Alkaline Phosphatase 182 H Total Protein 6.5 Albumin 3.3 L 07/29/20 07/29/20 07/29/20 00:49 00:49 03:49 Creatine Kinase 45 CK-MB (CK-2) 0.86 Troponin I < 0.012 < 0.012 07/29/20 10:02 Creatine Kinase CK-MB (CK-2) 0.59 Troponin I Impressions: Abdomen Ultrasound 07/29/20 00:00 IMPRESSION: 1. Distended gallbladder with cholelithiasis and wall thickening measuring up to 5 mm suggestive of cholecystitis. However, negative reported sonographic Garcia's sign without pericholecystic fluid. Recommend correlation with patient symptoms and lab values. 2. Questionable areas of comet tail artifact which can be seen with adenomyomatosis. 3. Hepatic steatosis. Abdomen/Pelvis CT 07/29/20 00:00 IMPRESSION: 1. Mild distended gallbladder with questionable wall thickening. No pericholecystic inflammatory change or radiopaque stones. Recommend correlation with patient symptoms. Right upper quadrant ultrasound could be considered for further evaluation. 2. Improvement in previously seen small bowel dilation and wall thickening. 3. No other evidence of acute intra-abdominal/pelvic process. Chest X-Ray 07/29/20 00:52 IMPRESSION: 1. No acute pulmonary process identified. Abdomen MRI 07/30/20 00:00 IMPRESSION: Small distal common bile duct stone or stricture. Cholangiogram 08/01/20 00:00 IMPRESSION: INTRAOPERATIVE CHOLANGIOGRAM. Plan Discharge Plan: Transfer to [facility] for ERCP. Time Spent: Greater than 30 Minutes
== END 2020-08-02 13:11 | disposition short-term general hospital (02) | DRG 417 ==
LOC: ER 00:45 → INTOOBSV 05:19 → EH 05:19 → OBSVTOIN 13:34 → 4W 14:13
PROVIDERS: ADMIT Internal Medicine; ATTEND Hospitalist
PROC: BF101ZZ Fluoroscopy of Bile Ducts using Low Osmolar Contrast (ICD-10-PCS; 2020-08-01)
PROC: 0FT44ZZ Resection of Gallbladder, Percutaneous Endoscopic Approach (ICD-10-PCS; principal; 2020-08-01 14:15)
DX: K85.10 Biliary acute pancreatitis without necrosis or infection (principal); K83.1 Obstruction of bile duct; F11.20 Opioid dependence, uncomplicated; K81.9 Cholecystitis, unspecified; R94.5 Abnormal results of liver function studies; I16.0 Hypertensive urgency; E78.5 Hyperlipidemia, unspecified; F32.9 Major depressive disorder, single episode, unspecified; F41.9 Anxiety disorder, unspecified; M79.18 Myalgia, other site; G89.29 Other chronic pain; E11.9 Type 2 diabetes mellitus without complications; R07.9 Chest pain, unspecified; E66.9 Obesity, unspecified; K59.03 Drug induced constipation; Z11.59 Encounter for screening for other viral diseases; Z79.84 Long term (current) use of oral hypoglycemic drugs; Z79.899 Other long term (current) drug therapy; Z88.8 Allergy status to other drugs, medicaments and biological substances; Z91.040 Latex allergy status; Z98.1 Arthrodesis status; Z86.12 Personal history of poliomyelitis; Z82.49 Family history of ischemic heart disease and other diseases of the circulatory system; Z68.29 Body mass index [BMI] 29.0-29.9, adult
CPT/HCPCS: 36415; 71045; 74177; 74181; 74300; 76705; 790; 80053; 80061; 82550; 82553; 83036; 83690; 83735; 84484; 85025; 85027; 88304; 93005; 93010; 93976; 99140; 99285; 0241U; C9803; G0378; J0330; J0690; J1100; J1170; J1644; J2250; J2270; J2405; J2704; J2710; J3010; J3490; J7030